=== PATIENT | male | born 2000 | race Caucasian/White ===

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

== ENCOUNTER 2019-02-19 13:21 | Emergency (ER) | payer OTHER ==
[2019-02-19 13:37] VITALS: RESP 18
[2019-02-19 14:42] LABS: Cocaine Screen,Urine Not Detected (NotDetected); Phencyclidine Screen,Urine Not Detected (NotDetected); Urn Cannabinoid Scrn Not Detected (NotDetected)
[2019-02-19 14:43] LABS: Amphetamine Screen,Urine Not Detected (NotDetected); Barbiturate Screen,Urine Not Detected (NotDetected); Benzodiazepines Screen,Urine Not Detected (NotDetected); Methadone Screen, Urine Not Detected (NotDetected); Opiate Screen,Urine Not Detected (NotDetected); Oxycodone Screen, Urine Not Detected (NotDetected); Tricyclic Antidepressant,Urine Not Detected (NotDetected)
--- NOTE | 2019-02-19 18:16 | ED ---
General Adult HPI - General Chief complaint: Psychiatric Symptoms Stated complaint: EPS eval Time Seen by Provider: 02/19/19 13:41 Source: patient, RN notes reviewed Mode of arrival: ambulatory Limitations: no limitations - History of Present Illness Initial comments: Patient is a pleasant 18-year-old male presenting to the emergency department family with depression and suicidal thoughts. Patient has been depressed for over a year. Symptoms worsened recently. Patient does have occasional thoughts of self-harm. Patient has ideas however states he does not have a plan. No hallucinations. No physical complaints. No homicidal thoughts. No alcohol or street drug use. - Related Data Home Medications Medication Instructions Recorded Confirmed Albuterol Inhaler [Ventolin Hfa 2 puff INHALATION RT-QID PRN 12/09/18 02/19/19 Inhaler] Ergocalciferol [Vitamin D2 50,000 unit PO TENA 12/09/18 02/19/19 (DRISDOL)] Loratadine [Claritin] 10 mg PO DAILY 12/09/18 02/19/19 Methylphenidate HCl [Ritalin] 20 mg PO DAILY 12/09/18 02/19/19 Montelukast [Singulair] 10 mg PO HS 12/09/18 02/19/19 Sertraline [Zoloft] 150 mg PO DAILY 12/09/18 02/19/19 cloNIDine HCL [Catapres] 0.1 mg PO HS 12/09/18 02/19/19 Allergies Allergy/AdvReac Type Severity Reaction Status Date / Time No Known Allergies Allergy Verified 02/19/19 14:16 Review of Systems ROS Statement: Those systems with pertinent positive or pertinent negative responses have been documented in the HPI. ROS Other: All systems not noted in ROS Statement are negative. Constitutional: Denies: fever Eyes: Denies: eye pain ENT: Denies: ear pain Respiratory: Denies: cough Cardiovascular: Denies: chest pain Endocrine: Denies: fatigue Gastrointestinal: Denies: abdominal pain Genitourinary: Denies: dysuria Musculoskeletal: Denies: back pain Skin: Denies: rash Neurological: Denies: headache, weakness Psychiatric: Reports: depression, suicidal thoughts Past Medical History Past Medical History: Asthma History of Any Multi-Drug Resistant Organisms: None Reported Past Surgical History: No Surgical Hx Reported Past Psychological History: ADD/ADHD, Anxiety, Depression Smoking Status: Never smoker Past Alcohol Use History: None Reported Past Drug Use History: None Reported General Exam Limitations: no limitations General appearance: alert, in no apparent distress Head exam: Present: atraumatic Eye exam: Present: normal appearance Neck exam: Present: normal inspection Respiratory exam: Present: normal lung sounds bilaterally Cardiovascular Exam: Present: regular rate GI/Abdominal exam: Present: soft. Absent: tenderness Extremities exam: Present: normal inspection. Absent: pedal edema, calf tenderness Neurological exam: Present: alert Psychiatric exam: Present: normal affect, normal mood Skin exam: Present: normal color Course Vital Signs 02/19/19 13:31 Temperature 98.5 F Pulse Rate 104 H Respiratory 18 Rate Blood Pressure 129/74 O2 Sat by Pulse 96 Oximetry Medical Decision Making - Medical Decision Making Patient was seen by mental health services with recommendation for discharge. Patient denies suicidal ideation and does contract for safety. Patient states he does have follow-up. - Lab Data Lab Results 02/19/19 Range/Units 13:51 Urine Opiates Screen Not Detected (NotDetected) Ur Oxycodone Screen Not Detected (NotDetected) Urine Methadone Screen Not Detected (NotDetected) Ur Propoxyphene Screen Not Detected (NotDetected) Ur Barbiturates Screen Not Detected (NotDetected) U Tricyclic Antidepress Not Detected (NotDetected) Ur Phencyclidine Scrn Not Detected (NotDetected) Ur Amphetamines Screen Not Detected (NotDetected) U Methamphetamines Scrn Not Detected (NotDetected) U Benzodiazepines Scrn Not Detected (NotDetected) Urine Cocaine Screen Not Detected (NotDetected) U Marijuana (THC) Screen Not Detected (NotDetected) Disposition Clinical Impression: Depression Disposition: HOME SELF-CARE Condition: Stable Instructions (If sedation given, give patient instructions): Depression (ED) Additional Instructions: Please follow-up with primary care physician and counselor in the next couple days for recheck. Return for thoughts of self-harm, worsening symptoms or other concerns. Is patient prescribed a controlled substance at d/c from ED?: No Referrals: Corry Gaspar MD [Primary Care Provider] - 1-2 days Time of Disposition: 18:16
[2019-02-19 19:04] VITALS: BP 123/74; PULSE 97; TEMP 97.8
== END 2019-02-19 19:03 | disposition home or self-care (01) ==
LOC: EC 13:21
DX: F32.9 Major depressive disorder, single episode, unspecified (principal); J45.909 Unspecified asthma, uncomplicated; F90.9 Attention-deficit hyperactivity disorder, unspecified type; F41.9 Anxiety disorder, unspecified; Z79.899 Other long term (current) drug therapy
CPT/HCPCS: 80306; 82075; 99284

== ENCOUNTER 2019-03-09 18:27 | Emergency (ER) | payer OTHER ==
[2019-03-09] MEDS ORDERED: SODIUM CHLORIDE 0.9% 1,000 ML IV STA (18:39)
--- NOTE | 2019-03-09 18:45 | ED ---
Psych HPI - General Chief Complaint: Psychiatric Symptoms Stated Complaint: Chemical ingestion Time Seen by Provider: 03/09/19 18:33 Source: patient, EMS, RN notes reviewed Mode of arrival: EMS - History of Present Illness Initial Comments: This is a 18-year-old male with a history of depression and autism who is feeling suicidal apparently he just lost his job he is at risk of being evicted from his grandmother's house. He reportedly drank a bottle of Gatorade that was next with anti-freeze. He doesn't believe there was much in there but per report her may have been as much as 250 mL. He denies any nausea vomiting fevers chills sweats or other symptoms at this time. MD Complaint: suicidal ideation, other - Related Data Home Medications Medication Instructions Recorded Confirmed Ergocalciferol [Vitamin D2 50,000 unit PO TENA 12/09/18 03/09/19 (DRISDOL)] Loratadine [Claritin] 10 mg PO DAILY 12/09/18 03/09/19 Methylphenidate HCl [Ritalin] 20 mg PO DAILY 12/09/18 03/09/19 Montelukast [Singulair] 10 mg PO HS 12/09/18 03/09/19 Sertraline [Zoloft] 200 mg PO DAILY 12/09/18 03/09/19 cloNIDine HCL [Catapres] 0.1 mg PO HS 12/09/18 03/09/19 ARIPiprazole [Abilify] 2 mg PO DAILY 03/09/19 03/09/19 Albuterol Inhaler [Ventolin Hfa 1 - 2 puff INHALATION RT-Q6H PRN 03/09/19 03/09/19 Inhaler] Multivitamins, Thera [Multivitamin 1 tab PO DAILY 03/09/19 03/09/19 (formulary)] Triamcinolone Acetonide [Nasacort] 1 spray EA NOSTRIL 03/09/19 03/09/19 Allergies Allergy/AdvReac Type Severity Reaction Status Date / Time No Known Allergies Allergy Verified 03/09/19 19:00 Review of Systems ROS Statement: Those systems with pertinent positive or pertinent negative responses have been documented in the HPI. ROS Other: All systems not noted in ROS Statement are negative. Past Medical History Past Medical History: Asthma History of Any Multi-Drug Resistant Organisms: None Reported Past Surgical History: No Surgical Hx Reported Past Psychological History: ADD/ADHD, Anxiety, Depression Smoking Status: Never smoker Past Alcohol Use History: None Reported Past Drug Use History: None Reported General Exam - General Exam Comments Initial Comments: This is a well-developed well-nourished awake alert oriented 3 male Limitations: no limitations General appearance: alert, in no apparent distress Head exam: Present: atraumatic, normocephalic, normal inspection Eye exam: Present: normal appearance, PERRL, EOMI. Absent: scleral icterus, conjunctival injection, periorbital swelling ENT exam: Present: normal exam, mucous membranes moist Neck exam: Present: normal inspection. Absent: tenderness, meningismus, lymphadenopathy Respiratory exam: Present: normal lung sounds bilaterally. Absent: respiratory distress, wheezes, rales, rhonchi, stridor Cardiovascular Exam: Present: regular rate, normal rhythm, normal heart sounds. Absent: systolic murmur, diastolic murmur, rubs, gallop, clicks GI/Abdominal exam: Present: soft, normal bowel sounds. Absent: distended, tenderness, guarding, rebound, rigid Extremities exam: Present: normal inspection, full ROM, normal capillary refill. Absent: tenderness, pedal edema, joint swelling, calf tenderness Back exam: Present: normal inspection Neurological exam: Present: alert, oriented X3, CN II-XII intact Psychiatric exam: Present: depressed, flat affect, suicidal ideation Skin exam: Present: warm, dry, intact, normal color. Absent: rash Course Vital Signs 03/09/19 18:37 Temperature 98.1 F Pulse Rate 90 Respiratory 18 Rate Blood Pressure 133/93 O2 Sat by Pulse 98 Oximetry - Reevaluation(s) Reevaluation #1: 03/09/19 18:44 I did fluoresce the patient's oral cavity face and certain was wet very minimal evidence of any fluoresce. 03/09/19 18:45 Medical Decision Making - Medical Decision Making The patient was evaluated by psychiatric service after he was cleared medically. He will be discharged with outpatient follow-up. Currently is not a risk to himself or anyone else - Lab Data Result diagrams: 03/09/19 18:55 03/09/19 18:55 Lab Results 03/09/19 03/09/19 03/09/19 Range/Units 18:55 18:55 18:55 WBC 10.2 (4.0-11.0) k/uL RBC 5.59 (4.30-5.90) m/uL Hgb 14.7 (13.0-17.5) gm/dL Hct 43.9 (39.0-53.0) % MCV 78.6 L (80.0-100.0) fL MCH 26.2 (25.0-35.0) pg MCHC 33.4 (31.0-37.0) g/dL RDW 16.4 H (11.5-15.5) % Plt Count 363 (150-450) k/uL Neutrophils % 70 % Lymphocytes % 19 % Monocytes % 8 % Eosinophils % 2 % Basophils % 0 % Neutrophils # 7.1 (1.3-7.7) k/uL Lymphocytes # 2.0 (1.0-4.8) k/uL Monocytes # 0.8 (0-1.0) k/uL Eosinophils # 0.2 (0-0.7) k/uL Basophils # 0.0 (0-0.2) k/uL Anisocytosis Slight VBG pH 7.39 (7.31-7.41) VBG pCO2 41 (37-51) mmHg VBG HCO3 24 (24-28) mmol/L Sodium 141 (137-145) mmol/L Potassium 4.4 (3.5-5.1) mmol/L Chloride 108 H (98-107) mmol/L Carbon Dioxide 23 (22-30) mmol/L Anion Gap 10 mmol/L BUN 19 (9-20) mg/dL Creatinine 0.68 (0.66-1.25) mg/dL Est GFR (CKD-EPI)AfAm >90 (>60 ml/min/1.73 sqM) Est GFR (CKD-EPI)NonAf >90 (>60 ml/min/1.73 sqM) Glucose 109 H (74-99) mg/dL Plasma Lactic Acid Vega (0.7-2.0) mmol/L Calcium 10.0 (8.4-10.2) mg/dL Total Bilirubin 0.5 (0.2-1.3) mg/dL AST 33 (17-59) U/L ALT 54 (21-72) U/L Alkaline Phosphatase 50 (38-126) U/L Creatine Kinase 154 (55-170) U/L Total Protein 7.6 (6.3-8.2) g/dL Albumin 4.6 (3.5-5.0) g/dL Lipase 37 (23-300) U/L Urine Color Urine Appearance (Clear) Urine pH (5.0-8.0) Ur Specific Logan (1.001-1.035) Urine Protein (Negative) Urine Glucose (UA) (Negative) Urine Ketones (Negative) Urine Blood (Negative) Urine Nitrite (Negative) Urine Bilirubin (Negative) Urine Urobilinogen (<2.0) mg/dL Ur Leukocyte Esterase (Negative) Salicylates <1.0 mg/dL Urine Opiates Screen (NotDetected) Ur Oxycodone Screen (NotDetected) Urine Methadone Screen (NotDetected) Ur Propoxyphene Screen (NotDetected) Acetaminophen <10.0 ug/mL Ur Barbiturates Screen (NotDetected) U Tricyclic Antidepress (NotDetected) Ur Phencyclidine Scrn (NotDetected) Ur Amphetamines Screen (NotDetected) U Methamphetamines Scrn (NotDetected) U Benzodiazepines Scrn (NotDetected) Urine Cocaine Screen (NotDetected) U Marijuana (THC) Screen (NotDetected) Serum Alcohol <10 mg/dL 03/09/19 03/09/19 Range/Units 18:55 19:18 WBC (4.0-11.0) k/uL RBC (4.30-5.90) m/uL Hgb (13.0-17.5) gm/dL Hct (39.0-53.0) % MCV (80.0-100.0) fL MCH (25.0-35.0) pg MCHC (31.0-37.0) g/dL RDW (11.5-15.5) % Plt Count (150-450) k/uL Neutrophils % % Lymphocytes % % Monocytes % % Eosinophils % % Basophils % % Neutrophils # (1.3-7.7) k/uL Lymphocytes # (1.0-4.8) k/uL Monocytes # (0-1.0) k/uL Eosinophils # (0-0.7) k/uL Basophils # (0-0.2) k/uL Anisocytosis VBG pH (7.31-7.41) VBG pCO2 (37-51) mmHg VBG HCO3 (24-28) mmol/L Sodium (137-145) mmol/L Potassium (3.5-5.1) mmol/L Chloride (98-107) mmol/L Carbon Dioxide (22-30) mmol/L Anion Gap mmol/L BUN (9-20) mg/dL Creatinine (0.66-1.25) mg/dL Est GFR (CKD-EPI)AfAm (>60 ml/min/1.73 sqM) Est GFR (CKD-EPI)NonAf (>60 ml/min/1.73 sqM) Glucose (74-99) mg/dL Plasma Lactic Acid Vega 1.8 (0.7-2.0) mmol/L Calcium (8.4-10.2) mg/dL Total Bilirubin (0.2-1.3) mg/dL AST (17-59) U/L ALT (21-72) U/L Alkaline Phosphatase (38-126) U/L Creatine Kinase (55-170) U/L Total Protein (6.3-8.2) g/dL Albumin (3.5-5.0) g/dL Lipase (23-300) U/L Urine Color Yellow Urine Appearance Clear (Clear) Urine pH 6.0 (5.0-8.0) Ur Specific Logan 1.029 (1.001-1.035) Urine Protein Negative (Negative) Urine Glucose (UA) Negative (Negative) Urine Ketones Negative (Negative) Urine Blood Negative (Negative) Urine Nitrite Negative (Negative) Urine Bilirubin Negative (Negative) Urine Urobilinogen <2.0 (<2.0) mg/dL Ur Leukocyte Esterase Negative (Negative) Salicylates mg/dL Urine Opiates Screen Not Detected (NotDetected) Ur Oxycodone Screen Not Detected (NotDetected) Urine Methadone Screen Not Detected (NotDetected) Ur Propoxyphene Screen Not Detected (NotDetected) Acetaminophen ug/mL Ur Barbiturates Screen Not Detected (NotDetected) U Tricyclic Antidepress Not Detected (NotDetected) Ur Phencyclidine Scrn Not Detected (NotDetected) Ur Amphetamines Screen Not Detected (NotDetected) U Methamphetamines Scrn Not Detected (NotDetected) U Benzodiazepines Scrn Detected H (NotDetected) Urine Cocaine Screen Not Detected (NotDetected) U Marijuana (THC) Screen Not Detected (NotDetected) Serum Alcohol mg/dL - EKG Data -: EKG Interpreted by Me EKG shows normal: sinus rhythm (Normal sinus rhythm 88. Interval 148 QRS duration 82 QT since QTC 350/423 this is a normal-appearing EKG.) Disposition Clinical Impression: Adjustment reaction Disposition: HOME SELF-CARE Condition: Good Instructions (If sedation given, give patient instructions): Mood Disorders (ED) Is patient prescribed a controlled substance at d/c from ED?: No Referrals: Corry Gaspar MD [Primary Care Provider] - 1-2 days
[2019-03-09 19:12] LABS: VBG PH 7.39 (7.31-7.41)
[2019-03-09 19:24] LABS: ALT 54 U/L (21-72); AST 33 U/L (17-59); Acetaminophen <10.0 ug/mL; African American GFR (CKD) >90 (>60 ml/min/1.73 sqM); Albumin 4.6 g/dL (3.5-5.0); Alcohol <10 mg/dL; Alkaline Phosphatase 50 U/L (38-126); Anion Gap 10 mmol/L; Blood Urea Nitrogen 19 mg/dL (9-20); Carbon Dioxide 23 mmol/L (22-30); Chloride 108 mmol/L (98-107); Creatine Kinase 154 U/L (55-170); Glucose 109 mg/dL (74-99); Potassium 4.4 mmol/L (3.5-5.1); Salicylate <1.0 mg/dL; Sodium 141 mmol/L (137-145); Total Bilirubin 0.5 mg/dL (0.2-1.3); Total Protein 7.6 g/dL (6.3-8.2)
[2019-03-09 19:32] LABS: Anisocytosis Slight; Basophils % (A) 0 %; Eosinophils # (A) 0.2 k/uL (0-0.7); Eosinophils % (A) 2 %; HCT 43.9 % (39.0-53.0); HGB 14.7 gm/dL (13.0-17.5); Lymphocytes % (A) 19 %; MCH 26.2 pg (25.0-35.0); MCHC 33.4 g/dL (31.0-37.0); MCV 78.6 fL (80.0-100.0); Mean Platelet Volume 7.1; Monocytes # (A) 0.8 k/uL (0-1.0); Monocytes % (A) 8 %; Neutrophils # (A) 7.1 k/uL (1.3-7.7); Neutrophils % (A) 70 %; Platelet Count 363 k/uL (150-450); RBC 5.59 m/uL (4.30-5.90); RDW 16.4 % (11.5-15.5); WBC 10.2 k/uL (4.0-11.0)
[2019-03-09 19:33] LABS: Appearance,Urine Clear (Clear); Bilirubin,Urine Negative (Negative); Blood,Urine Negative (Negative); Color,Urine Yellow; Glucose,Urine (UA) Negative (Negative); Ketones,Urine Negative (Negative); Leukocyte Esterase,Urine Negative (Negative); Nitrite,Urine Negative (Negative); Protein,Urine Negative (Negative); Specific Gravity,Urine 1.029 (1.001-1.035); Urobilinogen,Urine <2.0 mg/dL (<2.0)
[2019-03-09 19:52] LABS: Amphetamine Screen,Urine Not Detected (NotDetected); Barbiturate Screen,Urine Not Detected (NotDetected); Benzodiazepines Screen,Urine Detected (NotDetected); Cocaine Screen,Urine Not Detected (NotDetected); Methadone Screen, Urine Not Detected (NotDetected); Opiate Screen,Urine Not Detected (NotDetected); Oxycodone Screen, Urine Not Detected (NotDetected); Phencyclidine Screen,Urine Not Detected (NotDetected); Tricyclic Antidepressant,Urine Not Detected (NotDetected); Urn Cannabinoid Scrn Not Detected (NotDetected)
[2019-03-09 23:09] VITALS: BP 129/75; PULSE 87; RESP 16; TEMP 98
== END 2019-03-09 23:09 | disposition home or self-care (01) ==
LOC: EC 18:27
DX: F43.21 Adjustment disorder with depressed mood (principal); R45.851 Suicidal ideations; J45.909 Unspecified asthma, uncomplicated; F41.9 Anxiety disorder, unspecified; F90.9 Attention-deficit hyperactivity disorder, unspecified type; Z79.899 Other long term (current) drug therapy
CPT/HCPCS: 82075; 36415; 93005; 80053; 82550; 82803; 83605; 83690; 85025; 81003; 80306; 83520; 99285; 96360; G0480 ×2; 80320; 80329

== ENCOUNTER 2020-10-10 03:48 | Emergency (ER) | payer OTHER ==
[2020-10-10 03:54] VITALS: RESP 18; TEMP 97.9
--- NOTE | 2020-10-10 04:17 | ED ---
Chest Pain HPI - General Chief Complaint: Chest Pain Stated Complaint: Chest Pain Time Seen by Provider: 10/10/20 03:55 Source: patient, family Mode of arrival: wheelchair Limitations: no limitations - History of Present Illness MD Complaint: chest pain Onset/Timin -: hour(s) Onset: during rest Pain Location: left chest Pain Radiation: none Severity: moderate Quality: sharp Consistency: constant Improves With: nothing Worsens With: nothing Treatments Prior to Arrival: none - Related Data Home Medications Medication Instructions Recorded Confirmed Ergocalciferol [Vitamin D2 50,000 unit PO TENA 12/09/18 03/09/19 (DRISDOL)] Loratadine [Claritin] 10 mg PO DAILY 12/09/18 03/09/19 Methylphenidate HCl [Ritalin] 20 mg PO DAILY 12/09/18 03/09/19 Montelukast [Singulair] 10 mg PO HS 12/09/18 03/09/19 Sertraline [Zoloft] 200 mg PO DAILY 12/09/18 03/09/19 cloNIDine HCL [Catapres] 0.1 mg PO HS 12/09/18 03/09/19 ARIPiprazole [Abilify] 2 mg PO DAILY 03/09/19 03/09/19 Albuterol Inhaler (Mhu) [Ventolin 1 - 2 puff INHALATION RT-Q6H PRN 03/09/19 03/09/19 Hfa Inhaler] Multivitamins, Thera [Multivitamin 1 tab PO DAILY 03/09/19 03/09/19 (formulary)] Triamcinolone Acetonide [Nasacort] 1 spray EA NOSTRIL 03/09/19 03/09/19 Allergies Allergy/AdvReac Type Severity Reaction Status Date / Time No Known Allergies Allergy Verified 10/10/20 03:50 Review of Systems ROS Statement: Those systems with pertinent positive or pertinent negative responses have been documented in the HPI. ROS Other: All systems not noted in ROS Statement are negative. Constitutional: Denies: fever, chills Respiratory: Denies: cough, dyspnea Cardiovascular: Reports: chest pain. Denies: palpitations, edema, syncope Gastrointestinal: Denies: abdominal pain, nausea, vomiting Genitourinary: Denies: dysuria Musculoskeletal: Denies: back pain Skin: Denies: rash Neurological: Denies: headache, weakness EKG Findings - EKG Results: EKG: interpreted by ERMD, sinus rhythm, normal axis, normal QRS EKG shows: tachycardia (Rate 110 bpm) - Blocks, [place], Hypertrophy, ST Abn: Repolarization changes or abnormalities: nonspecific abnormality, ST segment, and/or T wave Past Medical History Past Medical History: Asthma, Seizure Disorder Additional Past Medical History / Comment(s): Autism History of Any Multi-Drug Resistant Organisms: None Reported Past Surgical History: No Surgical Hx Reported Past Psychological History: ADD/ADHD, Anxiety, Depression Smoking Status: Former smoker Past Alcohol Use History: None Reported Past Drug Use History: None Reported General Exam Limitations: no limitations General appearance: alert, in no apparent distress Head exam: Present: atraumatic, normocephalic Eye exam: Present: normal appearance. Absent: scleral icterus, conjunctival injection Neck exam: Present: normal inspection Respiratory exam: Present: normal lung sounds bilaterally, chest wall tenderness. Absent: respiratory distress, wheezes, rales, rhonchi, stridor, accessory muscle use Cardiovascular Exam: Present: normal rhythm, tachycardia, normal heart sounds. Absent: systolic murmur, diastolic murmur, rubs, gallop GI/Abdominal exam: Present: soft. Absent: distended, tenderness, guarding, rebound, rigid, pulsatile mass Extremities exam: Present: normal inspection, normal capillary refill. Absent: pedal edema, calf tenderness Back exam: Present: normal inspection. Absent: CVA tenderness (R), CVA tenderness (L), vertebral tenderness Neurological exam: Present: alert Skin exam: Present: warm, dry, intact, normal color. Absent: rash Course Vital Signs 10/10/20 10/10/20 03:51 06:28 Temperature 97.9 F Pulse Rate 106 H 97 Respiratory 18 18 Rate Blood Pressure 142/93 130/62 O2 Sat by Pulse 96 97 Oximetry Disposition Clinical Impression: Chest pain Disposition: HOME SELF-CARE Condition: Good Instructions (If sedation given, give patient instructions): Chest Pain (ED) Is patient prescribed a controlled substance at d/c from ED?: No Referrals: Corry Gaspar MD [Primary Care Provider] - 1-2 days
[2020-10-10 05:01] LABS: Basophils # (A) 0.1 k/uL (0-0.2); Basophils % (A) 1 %; Eosinophils # (A) 0.5 k/uL (0-0.7); Eosinophils % (A) 4 %; HCT 42.7 % (39.0-53.0); HGB 13.9 gm/dL (13.0-17.5); Lymphocytes % (A) 25 %; MCH 24.3 pg (25.0-35.0); MCHC 32.5 g/dL (31.0-37.0); MCV 74.9 fL (80.0-100.0); Mean Platelet Volume 6.9; Microcytosis Slight; Monocytes # (A) 0.9 k/uL (0-1.0); Monocytes % (A) 7 %; Neutrophils # (A) 7.6 k/uL (1.3-7.7); Neutrophils % (A) 63 %; Platelet Count 365 k/uL (150-450); RDW 14.7 % (11.5-15.5); WBC 12.1 k/uL (3.8-10.6)
[2020-10-10 05:12] LABS: ALT 56 U/L (4-49); AST 37 U/L (17-59); African American GFR (CKD) >90 (>60 ml/min/1.73 sqM); Albumin 4.6 g/dL (3.5-5.0); Alkaline Phosphatase 78 U/L (38-126); Anion Gap 12 mmol/L; Blood Urea Nitrogen 17 mg/dL (9-20); Calcium 10.3 mg/dL (8.4-10.2); Carbon Dioxide 22 mmol/L (22-30); Chloride 107 mmol/L (98-107); Glucose 108 mg/dL (74-99); Non-African American GFR(CKD) >90 (>60 ml/min/1.73 sqM); Potassium 4.1 mmol/L (3.5-5.1); Sodium 141 mmol/L (137-145); Total Bilirubin 0.5 mg/dL (0.2-1.3); Total Protein 7.7 g/dL (6.3-8.2)
--- NOTE | 2020-10-10 05:15 | XR ---
EXAM: XR Chest, 2 Views CLINICAL HISTORY: ITS.REASON XR Reason: Chest Pain TECHNIQUE: Frontal and lateral views of the chest. COMPARISON: 12/09/2018. FINDINGS: Lungs: Unremarkable. No consolidation. Pleural space: Unremarkable. No pneumothorax. Heart: Unremarkable. No cardiomegaly. Mediastinum: Unremarkable. Bones/joints: Unremarkable. No displaced rib fractures. IMPRESSION: No acute pulmonary process.
[2020-10-10 06:30] VITALS: BP 130/62; PULSE 97
== END 2020-10-10 07:04 | disposition home or self-care (01) ==
LOC: EC 03:48
DX: R07.89 Other chest pain (principal); J45.909 Unspecified asthma, uncomplicated; F41.9 Anxiety disorder, unspecified; F32.9 Major depressive disorder, single episode, unspecified; Z87.891 Personal history of nicotine dependence
CPT/HCPCS: 36415; 71046; 80053; 83735; 84484; 85025; 85379; 93005; 99285

== ENCOUNTER 2020-10-23 21:26 | Emergency (ER) | payer OTHER ==
[2020-10-23 21:33] VITALS: TEMP 97.9
[2020-10-23] MEDS ORDERED: ACETAMINOPHEN TAB 325 MG TAB PO STA (22:04)
--- NOTE | 2020-10-23 22:10 | ED ---
Upper Extremity HPI - General Chief Complaint: Extremity Injury, Upper Stated Complaint: R Hand Pain Time Seen by Provider: 10/23/20 21:50 Source: patient Mode of arrival: ambulatory Limitations: no limitations - History of Present Illness Initial Comments: 's patient is a 20-year-old man with history of seizure disorder who presents with complaint that he believes he injured his right hand due to a seizure last night. Patient does have multiple seizures on some days. He is compliant with his medication but still has chronic breakthrough seizures. The patient was night had a seizure and his hand was banging against a piece of furniture. He indicates the area over the fourth and fifth MCP joints. He does continue to have sensation and movement throughout the right hand. When discussed with the patient and family members, they're not concerned about the seizures, and state that this is something that is usual for him. They are only concerned regarding the hand injury. Complaint: Injury to:: right Onset/Timin -: hour(s) Other Extremity Injury: Hand: Right Other Injuries: none Handedness: right Place: home Improves With: none Worsens With: movement of extremity Context: direct blow Associated Symptoms: denies other symptoms - Related Data Home Medications Medication Instructions Recorded Confirmed Ergocalciferol [Vitamin D2 50,000 unit PO TENA 12/09/18 03/09/19 (DRISDOL)] Loratadine [Claritin] 10 mg PO DAILY 12/09/18 03/09/19 Methylphenidate HCl [Ritalin] 20 mg PO DAILY 12/09/18 03/09/19 Montelukast [Singulair] 10 mg PO HS 12/09/18 03/09/19 Sertraline [Zoloft] 200 mg PO DAILY 12/09/18 03/09/19 cloNIDine HCL [Catapres] 0.1 mg PO HS 12/09/18 03/09/19 ARIPiprazole [Abilify] 2 mg PO DAILY 03/09/19 03/09/19 Albuterol Inhaler (Mhu) [Ventolin 1 - 2 puff INHALATION RT-Q6H PRN 03/09/19 03/09/19 Hfa Inhaler] Multivitamins, Thera [Multivitamin 1 tab PO DAILY 03/09/19 03/09/19 (formulary)] Triamcinolone Acetonide [Nasacort] 1 spray EA NOSTRIL 03/09/19 03/09/19 Allergies Allergy/AdvReac Type Severity Reaction Status Date / Time No Known Allergies Allergy Verified 10/23/20 21:32 Review of Systems ROS Statement: Those systems with pertinent positive or pertinent negative responses have been documented in the HPI. ROS Other: All systems not noted in ROS Statement are negative. Constitutional: Denies: fever, chills, weakness Eyes: Denies: vision change Respiratory: Denies: cough, dyspnea Cardiovascular: Denies: chest pain Gastrointestinal: Denies: abdominal pain, vomiting Musculoskeletal: Reports: as per HPI, arthralgia. Denies: back pain Skin: Denies: rash Neurological: Denies: headache, weakness, numbness, paresthesias, confusion Past Medical History Past Medical History: Asthma, Seizure Disorder Additional Past Medical History / Comment(s): Autism History of Any Multi-Drug Resistant Organisms: None Reported Past Surgical History: No Surgical Hx Reported Past Psychological History: ADD/ADHD, Anxiety, Depression Smoking Status: Never smoker Past Alcohol Use History: None Reported Past Drug Use History: None Reported General Exam Limitations: no limitations General appearance: alert, in no apparent distress Head exam: Present: atraumatic, normocephalic Eye exam: Present: normal appearance, PERRL, EOMI. Absent: scleral icterus, conjunctival injection, nystagmus Right Forearm Wrist exam: Present: normal inspection, full ROM. Absent: tenderness, swelling Hand Wrist exam: Present: full ROM, tenderness (Overlying the right fourth and fifth MCP joints), swelling (Overlying the right fourth and fifth MCP joints), ecchymosis (Overlying the right fourth and fifth MCP joints). Absent: abrasion, laceration, deformity, crepitus, dislocation, erythema, amputation Neuro motor exam: Present: wrist extension intact, thumb opposition intact, thumb IP flexion intact, thumb adduction intact, fingers 2-5 abduction intact Neurosensory exam: Present: 2-point discrimination, radial nerve intact, ulnar nerve intact, median nerve intact Vascular: Present: normal capillary refill. Absent: vascular compromise Neurological exam: Present: alert. Absent: motor sensory deficit Skin exam: Present: warm, dry, intact, normal color. Absent: rash Course Vital Signs 10/23/20 21:27 Temperature 97.9 F Pulse Rate 100 Respiratory 18 Rate Blood Pressure 149/98 O2 Sat by Pulse 97 Oximetry Disposition Clinical Impression: Contusion, hand Disposition: HOME SELF-CARE Condition: Good Instructions (If sedation given, give patient instructions): Hand Sprain (ED) Is patient prescribed a controlled substance at d/c from ED?: No Referrals: Corry Gaspar MD [Primary Care Provider] - 1-2 days
--- NOTE | 2020-10-23 22:44 | XR ---
EXAMINATION TYPE: XR hand complete RT DATE OF EXAM: 10/23/2020 COMPARISON: NONE HISTORY: Pain TECHNIQUE: 3 views FINDINGS: Metacarpals are intact. There is soft tissue swelling around the hand. Joint spaces appear normal. There are no erosions. IMPRESSION: No acute bony abnormality. No fracture.
[2020-10-23 23:10] VITALS: BP 135/80; PULSE 86; RESP 16
== END 2020-10-23 23:05 | disposition home or self-care (01) ==
LOC: EC 21:26
DX: S60.221A Contusion of right hand, initial encounter (principal); F32.9 Major depressive disorder, single episode, unspecified; F41.9 Anxiety disorder, unspecified; J45.909 Unspecified asthma, uncomplicated; W22.09XA Striking against other stationary object, initial encounter
CPT/HCPCS: 99283

== ENCOUNTER 2022-03-23 23:34 | Emergency (ER) | payer OTHER ==
[2022-03-24] VITALS: BP 139/87; PULSE 87; RESP 17; TEMP 98.3
--- NOTE | 2022-03-24 02:03 | ED ---
General Adult HPI - General Chief complaint: Recheck/Abnormal Lab/Rx Stated complaint: HIgh Blood Pressure Time Seen by Provider: 03/24/22 01:03 Source: patient, RN notes reviewed Mode of arrival: wheelchair - History of Present Illness Initial comments: This is a pleasant 21-year-old male with a history of autism and seizure disorder. The patient drank 216 ounce energy drinks each containing 300 mg of caffeine today. He'll for the patient. After that he developed a strange feeling with elevated blood pressure. patient denying any current symptoms. No chest pain. States he did have a bit of a headache earlier which is actually resolved. No vision or hearing changes. No numbness or tingling. No arm or leg weakness. No gait disturbance. No nausea or vomiting. No confusion. No abdominal pain. No changes in bowel movements or urination.has had no seizure activity no fever or chills, no changes in vision or hearing, no sore throat or difficulty with speech, no neck pain, no chest pain or shortness of breath, no abdominal pain, no nausea or vomiting, no changes in urination or bowel movements, no numbness or tingling, no extremity pain, no skin rashes or lesions. Past medical, surgical, social, and family history reviewed. - Related Data Home Medications Medication Instructions Recorded Confirmed Ergocalciferol [Vitamin D2 50,000 unit PO TENA 12/09/18 03/09/19 (DRISDOL)] Loratadine [Claritin] 10 mg PO DAILY 12/09/18 03/09/19 Methylphenidate HCl [Ritalin] 20 mg PO DAILY 12/09/18 03/09/19 Montelukast [Singulair] 10 mg PO HS 12/09/18 03/09/19 Sertraline [Zoloft] 200 mg PO DAILY 12/09/18 03/09/19 cloNIDine HCL [Catapres] 0.1 mg PO HS 12/09/18 03/09/19 ARIPiprazole [Abilify] 2 mg PO DAILY 03/09/19 03/09/19 Albuterol Inhaler [Ventolin Hfa 1 - 2 puff INHALATION RT-Q6H PRN 03/09/19 03/09/19 Inhaler] Multivitamins, Thera [Multivitamin 1 tab PO DAILY 03/09/19 03/09/19 (formulary)] Triamcinolone Acetonide [Nasacort] 1 spray EA NOSTRIL HS 03/09/19 03/09/19 Allergies Allergy/AdvReac Type Severity Reaction Status Date / Time No Known Allergies Allergy Verified 03/24/22 00:00 Review of Systems ROS Statement: Those systems with pertinent positive or pertinent negative responses have been documented in the HPI. ROS Other: All systems not noted in ROS Statement are negative. Past Medical History Past Medical History: Asthma, Seizure Disorder Additional Past Medical History / Comment(s): Autism, VNS Device implanted History of Any Multi-Drug Resistant Organisms: None Reported Past Surgical History: No Surgical Hx Reported Past Psychological History: ADD/ADHD, Anxiety, Depression Smoking Status: Never smoker Past Alcohol Use History: None Reported Past Drug Use History: None Reported General Exam - General Exam Comments Initial Comments: Vital signs stable, patient afebrile. Patient's current blood pressure is 134/87. Alert and oriented 4. Cranial nerves II through XII intact. No evidence of neurologic deficit. Does not appear to be ill or toxic. General appearance: obese Head exam: Present: atraumatic, normocephalic, normal inspection Eye exam: Present: normal appearance, PERRL, EOMI. Absent: scleral icterus, conjunctival injection, periorbital swelling ENT exam: Present: normal exam, mucous membranes moist Neck exam: Present: normal inspection. Absent: tenderness, meningismus, lymphadenopathy Respiratory exam: Present: normal lung sounds bilaterally. Absent: respiratory distress, wheezes, rales, rhonchi, stridor Cardiovascular Exam: Present: regular rate, normal rhythm, normal heart sounds. Absent: systolic murmur, diastolic murmur, rubs, gallop, clicks GI/Abdominal exam: Present: soft, normal bowel sounds. Absent: distended, tenderness, guarding, rebound, rigid Extremities exam: Present: normal inspection, full ROM, normal capillary refill. Absent: tenderness, pedal edema, joint swelling, calf tenderness Back exam: Present: normal inspection Neurological exam: Present: alert, oriented X3, CN II-XII intact Psychiatric exam: Present: normal affect, normal mood Skin exam: Present: warm, dry, intact, normal color. Absent: rash Course Vital Signs 03/23/22 23:56 Temperature 98.3 F Pulse Rate 87 Respiratory 17 Rate Blood Pressure 139/87 O2 Sat by Pulse 99 Oximetry - Reevaluation(s) Reevaluation #1: 03/24/22 01:59 Medical record is reviewed Symptoms are improved here in the emergency department Patient is informed of results and questions answered Patient in no distress EKG Findings - EKG Comments: EKG Findings:: EKG done at 1:45 AM and read by the ED attending physician reveals a rate of 109, sinus tachycardia. No evidence of significant ST or T- wave changes. Normal axis. Normal intervals. When compared to the previous study from October 2020 there is no significant change. Patient does have some baseline artifact on this EKG. Patient shows tachycardia which is expected after drinking energy drinks. Medical Decision Making - Medical Decision Making Patient presented after having a blood pressure check at home of 180/110. This was after 2, 16 ounce energy drinks.these contain 300 mg of caffeine each. This is not normal for the patient to intake and energy drinks. Patient symptoms are essentially resolved at this time. Patient now normotensive. Vital signs stabilized. Patient was not tachycardic on physical examination. Heart rate was 84. Patient was told to return to the ER for any signs or symptoms worsen. Told to return immediately if any other problems arise. All questions answered. Treatment plan discussed. Patient in agreement Every effort has been made to ensure accuracy of this dictation. However, due to the limitations of electronic medical records and dictation devices, errors in charting still occur. Patient discharged with his mother. Told to refrain from taking energy drinks. I do not believe any other investigations are warranted. The case was discussed in detail with ED attending physician. Presentation, fi ndings, treatment plan discussed in detail. Patient can follow up with his regular physician. Mother told to call for follow-up. We'll have her monitor her blood pressure home once daily. Supervising physician Dr. Meyers Disposition Clinical Impression: Single episode of elevated blood pressure, Caffeine adverse reaction Disposition: HOME SELF-CARE Condition: Good Instructions (If sedation given, give patient instructions): Hypertension (ED), Caffeine Use (ED) Additional Instructions: Blood pressure has stabilized. Make a follow-up appointment with her regular physician. Avoid energy drinks. Follow-up with your regular physician as directed. Return to the ER immediately if any symptoms worsen, new symptoms arise, or any other problems develop. Is patient prescribed a controlled substance at d/c from ED?: No Referrals: Corry Gaspar MD [Primary Care Provider] - 1-2 days Time of Disposition: 02:02
== END 2022-03-24 03:25 | disposition home or self-care (01) ==
LOC: EC 23:34
DX: I10 Essential (primary) hypertension (principal); T43.615A Adverse effect of caffeine, initial encounter; J45.909 Unspecified asthma, uncomplicated; F41.9 Anxiety disorder, unspecified; F32.A Depression, unspecified; Z79.51 Long term (current) use of inhaled steroids; Z79.899 Other long term (current) drug therapy
CPT/HCPCS: 99283

== ENCOUNTER 2022-03-27 02:04 | Emergency (ER) | payer OTHER ==
[2022-03-27 02:10] VITALS: TEMP 96.3
[2022-03-27] MEDS ORDERED: hydroCHLOROthiazide 25 MG TAB PO STA (03:01)
--- NOTE | 2022-03-27 03:01 | ED ---
Recheck HPI - General Chief Complaint: Recheck/Abnormal Lab/Rx Stated Complaint: High BP Time Seen by Provider: 03/27/22 02:42 Source: patient, RN notes reviewed, old records reviewed Mode of arrival: ambulatory Limitations: no limitations - History of Present Illness Initial Comments: This is a 19-year-old male DF for evaluation patient presents today for elevation of elevated blood pressure anxiety and stress at home. Patient's blood pressures improved here in the ER, patient grandjeremiah who is primary caregiver wishes that he said some blood pressure medication. Patient otherwise has no complaints MD Complaint: other (Elevated blood pressure) -: unknown Returns Today for: other (0) Symptoms Since Prior Visit: no new symptoms Context: planned re-check Associated Symptoms: none Treatments Prior to Arrival: other (0) - Related Data Home Medications Medication Instructions Recorded Confirmed Ergocalciferol [Vitamin D2 50,000 unit PO TENA 12/09/18 03/09/19 (DRISDOL)] Loratadine [Claritin] 10 mg PO DAILY 12/09/18 03/09/19 Methylphenidate HCl [Ritalin] 20 mg PO DAILY 12/09/18 03/09/19 Montelukast [Singulair] 10 mg PO HS 12/09/18 03/09/19 Sertraline [Zoloft] 200 mg PO DAILY 12/09/18 03/09/19 cloNIDine HCL [Catapres] 0.1 mg PO HS 12/09/18 03/09/19 ARIPiprazole [Abilify] 2 mg PO DAILY 03/09/19 03/09/19 Albuterol Inhaler [Ventolin Hfa 1 - 2 puff INHALATION RT-Q6H PRN 03/09/19 03/09/19 Inhaler] Multivitamins, Thera [Multivitamin 1 tab PO DAILY 03/09/19 03/09/19 (formulary)] Triamcinolone Acetonide [Nasacort] 1 spray EA NOSTRIL HS 03/09/19 03/09/19 Previous Rx's Medication Instructions Recorded hydroCHLOROthiazide 25 mg PO DAILY #60 tab 03/27/22 Allergies Allergy/AdvReac Type Severity Reaction Status Date / Time No Known Allergies Allergy Verified 03/27/22 02:10 Review of Systems ROS Statement: Those systems with pertinent positive or pertinent negative responses have been documented in the HPI. ROS Other: All systems not noted in ROS Statement are negative. Past Medical History Past Medical History: Asthma, Seizure Disorder Additional Past Medical History / Comment(s): Autism, VNS Device implanted History of Any Multi-Drug Resistant Organisms: None Reported Past Surgical History: No Surgical Hx Reported Past Psychological History: ADD/ADHD, Anxiety, Depression Smoking Status: Never smoker Past Alcohol Use History: None Reported Past Drug Use History: None Reported General Exam Limitations: no limitations General appearance: anxious Head exam: Present: atraumatic, normocephalic, normal inspection Eye exam: Present: normal appearance, PERRL, EOMI. Absent: scleral icterus, conjunctival injection, periorbital swelling ENT exam: Present: normal exam, mucous membranes moist Neck exam: Present: normal inspection. Absent: tenderness, meningismus, lymphadenopathy Respiratory exam: Present: normal lung sounds bilaterally. Absent: respiratory distress, wheezes, rales, rhonchi, stridor Cardiovascular Exam: Present: regular rate, normal rhythm, normal heart sounds. Absent: systolic murmur, diastolic murmur, rubs, gallop, clicks GI/Abdominal exam: Present: soft, normal bowel sounds. Absent: distended, tenderness, guarding, rebound, rigid Extremities exam: Present: normal inspection, full ROM, normal capillary refill. Absent: tenderness, pedal edema, joint swelling, calf tenderness Back exam: Present: normal inspection Neurological exam: Present: alert, oriented X3, CN II-XII intact Psychiatric exam: Present: normal affect, normal mood Skin exam: Present: warm, dry, intact, normal color. Absent: rash Course Vital Signs 03/27/22 03/27/22 02:06 03:13 Temperature 96.3 F L Pulse Rate 96 74 Respiratory 20 15 Rate Blood Pressure 141/87 137/68 O2 Sat by Pulse 98 98 Oximetry - Reevaluation(s) Reevaluation #1: 03/27/22 Medical record is reviewed Patient symptoms resolved here in the ER Patient informed results and questions answered Medical Decision Making - Medical Decision Making 21 male to the emergency department for evaluation presents today for elevation of elevated blood pressure. Patient was started on blood pressure control can be discharged home Disposition Clinical Impression: Hypertension Disposition: HOME SELF-CARE Condition: Good Instructions (If sedation given, give patient instructions): Hypertension (ED) Prescriptions: hydroCHLOROthiazide 25 mg PO DAILY #60 tab Is patient prescribed a controlled substance at d/c from ED?: No Referrals: Corry Gaspar MD [Primary Care Provider] - 1-2 days Time of Disposition: 03:00
[2022-03-27 03:14] VITALS: BP 137/68; PULSE 74; RESP 15
== END 2022-03-27 03:13 | disposition home or self-care (01) ==
LOC: EC 02:04
DX: I10 Essential (primary) hypertension (principal); J45.909 Unspecified asthma, uncomplicated; G40.909 Epilepsy, unspecified, not intractable, without status epilepticus; F90.9 Attention-deficit hyperactivity disorder, unspecified type; F41.9 Anxiety disorder, unspecified; F32.A Depression, unspecified; Z79.51 Long term (current) use of inhaled steroids; Z79.811 Long term (current) use of aromatase inhibitors; Z79.899 Other long term (current) drug therapy
CPT/HCPCS: 93005; 99283

== ENCOUNTER 2022-07-09 04:33 | Emergency (ER) | payer OTHER ==
[2022-07-09 04:40] VITALS: TEMP 98.7
--- NOTE | 2022-07-09 05:28 | XR ---
EXAMINATION TYPE: XR chest 2V DATE OF EXAM: 07/09/2022 COMPARISON: October 2020 HISTORY: Chest pain TECHNIQUE: 2 view FINDINGS: Heart and mediastinum are normal. Lungs are clear. There is no pneumothorax IMPRESSION: Normal chest
[2022-07-09 05:48] LABS: Basophils # (A) 0.1 k/uL (0-0.2); Basophils % (A) 1 %; Eosinophils # (A) 0.3 k/uL (0-0.7); Eosinophils % (A) 2 %; HCT 40.9 % (39.0-53.0); HGB 13.4 gm/dL (13.0-17.5); Lymphocytes # (A) 3.1 k/uL (1.0-4.8); Lymphocytes % (A) 26 %; MCH 25.2 pg (25.0-35.0); MCHC 32.7 g/dL (31.0-37.0); MCV 77.1 fL (80.0-100.0); Mean Platelet Volume 7.9; Monocytes # (A) 0.7 k/uL (0-1.0); Monocytes % (A) 6 %; Neutrophils # (A) 7.6 k/uL (1.3-7.7); Neutrophils % (A) 64 %; Platelet Count 316 k/uL (150-450); RBC 5.31 m/uL (4.30-5.90); RDW 14.3 % (11.5-15.5); WBC 11.9 k/uL (3.8-10.6)
[2022-07-09 06:11] LABS: ALT 81 U/L (4-49); AST 37 U/L (17-59); African American GFR (CKD) >90 (>60 ml/min/1.73 sqM); Albumin 4.4 g/dL (3.5-5.0); Alkaline Phosphatase 56 U/L (38-126); Anion Gap 10 mmol/L; Blood Urea Nitrogen 16 mg/dL (9-20); Calcium 9.4 mg/dL (8.4-10.2); Carbon Dioxide 26 mmol/L (22-30); Chloride 104 mmol/L (98-107); Glucose 141 mg/dL (74-99); Magnesium 1.9 mg/dL (1.6-2.3); Non-African American GFR(CKD) >90 (>60 ml/min/1.73 sqM); Potassium 4.2 mmol/L (3.5-5.1); Sodium 140 mmol/L (137-145); Total Bilirubin 0.5 mg/dL (0.2-1.3); Total Protein 6.9 g/dL (6.3-8.2)
[2022-07-09 06:22] LABS: INR 0.9 (<1.2); Partial Thromboplastin Time 24.1 sec (22.0-30.0); Prothrombin Time 9.7 sec (9.0-12.0)
--- NOTE | 2022-07-09 06:46 | ED ---
SOB HPI - General Chief Complaint: Shortness of Breath Stated Complaint: REJI Time Seen by Provider: 07/09/22 05:00 Source: patient Mode of arrival: ambulatory Limitations: no limitations - History of Present Illness Initial Comments: This patient is 22-year-old man with history of autism and recent covid infection who presents with complaint that he has been feeling short of breath and has some chest tightness going back 1-2 hours before coming in. History is also given by the patient's grandmother who is with him. Patient has not noted fever or chills. There is occasional cough, nonproductive. No anginal type symptoms, no diaphoresis, nausea or vomiting, palpitations or syncope. No leg pain or swelling. MD Complaint: shortness of breath, chest pain -: hour(s) Severity: mild Quality: other (Tight) Consistency: now resolved Improves With: nothing Worsens With: nothing Known History Of: other (Covid infection) Treatments Prior to Arrival: none - Related Data Home Oxygen Therapy: No Home Medications Medication Instructions Recorded Confirmed Ergocalciferol [Vitamin D2 50,000 unit PO TENA 12/09/18 03/09/19 (DRISDOL)] Loratadine [Claritin] 10 mg PO DAILY 12/09/18 03/09/19 Methylphenidate HCl [Ritalin] 20 mg PO DAILY 12/09/18 03/09/19 Montelukast [Singulair] 10 mg PO HS 12/09/18 03/09/19 Sertraline [Zoloft] 200 mg PO DAILY 12/09/18 03/09/19 cloNIDine HCL [Catapres] 0.1 mg PO HS 12/09/18 03/09/19 ARIPiprazole [Abilify] 2 mg PO DAILY 03/09/19 03/09/19 Albuterol Inhaler [Ventolin Hfa 1 - 2 puff INHALATION RT-Q6H PRN 03/09/19 03/09/19 Inhaler] Multivitamins, Thera [Multivitamin 1 tab PO DAILY 03/09/19 03/09/19 (formulary)] Triamcinolone Acetonide [Nasacort] 1 spray EA NOSTRIL HS 03/09/19 03/09/19 Previous Rx's Medication Instructions Recorded hydroCHLOROthiazide 25 mg PO DAILY #60 tab 09/19/22 Hydrocortisone [Anusol-Hc] 1 applic RECTAL BID #30 gm 07/09/22 Allergies Allergy/AdvReac Type Severity Reaction Status Date / Time No Known Allergies Allergy Verified 07/09/22 04:40 Review of Systems ROS Statement: Those systems with pertinent positive or pertinent negative responses have been documented in the HPI. ROS Other: All systems not noted in ROS Statement are negative. Constitutional: Denies: fever, chills, weakness Respiratory: Reports: as per HPI, cough, dyspnea. Denies: wheezes, hemoptysis, stridor Cardiovascular: Reports: as per HPI, chest pain. Denies: palpitations, orthopnea, edema, syncope Gastrointestinal: Denies: abdominal pain, nausea, vomiting Genitourinary: Denies: dysuria, hematuria Musculoskeletal: Denies: back pain Skin: Denies: rash Neurological: Denies: headache, weakness Past Medical History Past Medical History: Asthma, Seizure Disorder Additional Past Medical History / Comment(s): Autism, VNS Device implanted History of Any Multi-Drug Resistant Organisms: None Reported Past Surgical History: No Surgical Hx Reported Past Psychological History: ADD/ADHD, Anxiety, Depression Smoking Status: Never smoker Past Alcohol Use History: None Reported Past Drug Use History: None Reported General Exam Limitations: no limitations General appearance: alert, in no apparent distress Head exam: Present: atraumatic, normocephalic Eye exam: Present: normal appearance. Absent: scleral icterus, conjunctival injection ENT exam: Present: normal oropharynx Neck exam: Present: normal inspection Respiratory exam: Present: normal lung sounds bilaterally. Absent: respiratory distress, wheezes, rales, rhonchi, stridor Cardiovascular Exam: Present: regular rate, normal rhythm, normal heart sounds. Absent: systolic murmur, diastolic murmur, rubs, gallop GI/Abdominal exam: Present: soft. Absent: distended, tenderness, guarding, rebound, rigid, mass Extremities exam: Present: normal inspection, normal capillary refill. Absent: pedal edema, calf tenderness Back exam: Present: normal inspection. Absent: CVA tenderness (R), CVA tenderness (L) Neurological exam: Present: alert Skin exam: Present: warm, dry, intact, normal color. Absent: rash Course Vital Signs 07/09/22 07/09/22 07/09/22 04:38 05:43 07:05 Temperature 98.7 F Pulse Rate 104 H 89 Pulse Rate [ 109 H Roller Helper ] Respiratory 22 18 Rate Blood Pressure 151/101 147/76 O2 Sat by Pulse 97 98 Oximetry Medical Decision Making - Medical Decision Making This patient is 22-year-old man here with chest symptoms following recent code infection. I interpreted the chest x-ray as showing a normal cardiac silhouette and no infiltrate. Patient feeling better here in emergency department. Will have patient follow with his primary physician and discussed possibility of having echocardiogram for further evaluation of chest pains as well as possibility of Holter monitor if there is any palpitation accompanying. Respiratory further care and follow-up. Discussed return parameters. Was pt. sent in by a medical professional or institution? @ -no Did you speak to anyone other than the patient for history? @ -[The patient's grandmother Did you review nursing and triage notes? @ -[agree Were old charts reviewed? @ -[No Differential Diagnosis? @ -[Differential Chest Pain: Pulmonary embolism, pericarditis, STEMI, NSTEMI Aortic Dissection, Pneumothorax, Musculoskeletal, Esophageal Spasm GERD, Cholecystitis, Pancreatitis, this is not meant to be an all-inclusive list. EKG interpreted by me (3pts min.)? @ -see chart X-rays interpreted by me (1pt min.)? @ -[see chart CT interpreted by me (1pt min.)? @ -[none] U/S interpreted by me (1pt. min.)? @ -[none] What testing was considered but not performed? (CT, X-rays, U/S, labs)? Why? @ [CT, X-rays, U/S, labs? Why?] What meds were considered but not given? Why? @ -[none] Did you discuss the management of the patient with other professionals? @ -[no] Did you reconcile home meds? @ -[none] Was smoking cessation discussed for >3mins.? @ -[none] Was critical care preformed (if so, how long)? @ -[none] Were there social determinants of health that impacted care today? How? (Homelessness, low income, unemployed, alcoholism, drug addiction, transportation, low edu. Level, literacy, decrease access to med. care, senior care, rehab)? @ -[none] Was there de-escalation of care discussed even if they declined? (Discuss DNR or withdrawal of care, Hospice)? @ -[no] What co-morbidities impacted this encounter? (DM, HTN, Smoking, COPD, CAD, Cancer, CVA, Hep., AIDS, mental health diagnosis, sleep apnea, morbid obesity)? @ -[none] Was patient admitted / discharged? @ -[hospital course] Undiagnosed new problem with uncertain prognosis? @ -[none] Drug Therapy requiring intensive monitoring for toxicity (Heparin, Nitro, Insulin, Cardizem)? @ -[none] Were any procedures done? @ -[none] Diagnosis/symptom? @ -[Chest pain Acute, or Chronic, or Acute on Chronic? @ -[Acute Uncomplicated (without systemic symptoms) or Complicated (systemic symptoms)? @ -[Uncomplicated] Side effects of treatment? @ -[none] Exacerbation, Progression, or Severe Exacerbation] @ -[no] Poses a threat to life or bodily function? @ -[no] - Lab Data Result diagrams: 07/09/22 05:41 07/09/22 05:41 Lab Results 07/09/22 07/09/22 07/09/22 Range/Units 05:41 05:41 05:41 WBC 11.9 H (3.8-10.6) k/uL RBC 5.31 (4.30-5.90) m/uL Hgb 13.4 (13.0-17.5) gm/dL Hct 40.9 (39.0-53.0) % MCV 77.1 L (80.0-100.0) fL MCH 25.2 (25.0-35.0) pg MCHC 32.7 (31.0-37.0) g/dL RDW 14.3 (11.5-15.5) % Plt Count 316 (150-450) k/uL MPV 7.9 Neutrophils % 64 % Lymphocytes % 26 % Monocytes % 6 % Eosinophils % 2 % Basophils % 1 % Neutrophils # 7.6 (1.3-7.7) k/uL Lymphocytes # 3.1 (1.0-4.8) k/uL Monocytes # 0.7 (0-1.0) k/uL Eosinophils # 0.3 (0-0.7) k/uL Basophils # 0.1 (0-0.2) k/uL PT 9.7 (9.0-12.0) sec INR 0.9 (<1.2) APTT 24.1 (22.0-30.0) sec D-Dimer 0.24 (<0.60) mg/L FEU Sodium 140 (137-145) mmol/L Potassium 4.2 (3.5-5.1) mmol/L Chloride 104 (98-107) mmol/L Carbon Dioxide 26 (22-30) mmol/L Anion Gap 10 mmol/L BUN 16 (9-20) mg/dL Creatinine 0.59 L (0.66-1.25) mg/dL Est GFR (CKD-EPI)AfAm >90 (>60 ml/min/1.73 sqM) Est GFR (CKD-EPI)NonAf >90 (>60 ml/min/1.73 sqM) Glucose 141 H (74-99) mg/dL Calcium 9.4 (8.4-10.2) mg/dL Magnesium 1.9 (1.6-2.3) mg/dL Total Bilirubin 0.5 (0.2-1.3) mg/dL AST 37 (17-59) U/L ALT 81 H (4-49) U/L Alkaline Phosphatase 56 (38-126) U/L Troponin I (0.000-0.034) ng/mL Total Protein 6.9 (6.3-8.2) g/dL Albumin 4.4 (3.5-5.0) g/dL 07/09/22 Range/Units 05:41 WBC (3.8-10.6) k/uL RBC (4.30-5.90) m/uL Hgb (13.0-17.5) gm/dL Hct (39.0-53.0) % MCV (80.0-100.0) fL MCH (25.0-35.0) pg MCHC (31.0-37.0) g/dL RDW (11.5-15.5) % Plt Count (150-450) k/uL MPV Neutrophils % % Lymphocytes % % Monocytes % % Eosinophils % % Basophils % % Neutrophils # (1.3-7.7) k/uL Lymphocytes # (1.0-4.8) k/uL Monocytes # (0-1.0) k/uL Eosinophils # (0-0.7) k/uL Basophils # (0-0.2) k/uL PT (9.0-12.0) sec INR (<1.2) APTT (22.0-30.0) sec D-Dimer (<0.60) mg/L FEU Sodium (137-145) mmol/L Potassium (3.5-5.1) mmol/L Chloride (98-107) mmol/L Carbon Dioxide (22-30) mmol/L Anion Gap mmol/L BUN (9-20) mg/dL Creatinine (0.66-1.25) mg/dL Est GFR (CKD-EPI)AfAm (>60 ml/min/1.73 sqM) Est GFR (CKD-EPI)NonAf (>60 ml/min/1.73 sqM) Glucose (74-99) mg/dL Calcium (8.4-10.2) mg/dL Magnesium (1.6-2.3) mg/dL Total Bilirubin (0.2-1.3) mg/dL AST (17-59) U/L ALT (4-49) U/L Alkaline Phosphatase (38-126) U/L Troponin I <0.012 (0.000-0.034) ng/mL Total Protein (6.3-8.2) g/dL Albumin (3.5-5.0) g/dL - EKG Data -: EKG Interpreted by [facility] EKG shows normal: sinus rhythm, axis (Normal), intervals (Normal) Rate: tachycardia (Rate 101 bpm) Disposition Clinical Impression: Chest pain Disposition: HOME SELF-CARE Condition: Good Instructions (If sedation given, give patient instructions): Chest Pain (ED) Prescriptions: Hydrocortisone [Anusol-Hc] 1 applic RECTAL BID #30 gm Is patient prescribed a controlled substance at d/c from ED?: No Referrals: Corry Gaspar MD [Primary Care Provider] - 1-2 days
[2022-07-09 07:05] VITALS: BP 147/76; PULSE 89; RESP 18
== END 2022-07-09 07:06 | disposition home or self-care (01) ==
LOC: EC 04:33
DX: R07.89 Other chest pain (principal); J45.909 Unspecified asthma, uncomplicated; F41.9 Anxiety disorder, unspecified; F32.A Depression, unspecified; Z79.899 Other long term (current) drug therapy
CPT/HCPCS: 36415; 71046; 80053; 83735; 84484; 85025; 85379; 85610; 85730; 93005; 99285

== ENCOUNTER 2022-09-28 07:20 | Day surgery (SDC) | payer OTHER ==
[2022-09-28] MEDS ORDERED: LIDOCAINE 1% (10MG/ML) FOR IV START INTRADERMA PRN (07:56)
[2022-09-28] MEDS ORDERED: LACTATED RINGERS 1,000 ML IV SCH (07:56)
[2022-09-28 08:04] VITALS: TEMP 97.8
[2022-09-28 08:14] LABS: Glucose,Whole Blood 114 mg/dL (70-110)
[2022-09-28] MEDS ORDERED: PROPOFOL 10 MG/ML 20 ML VIAL IV ONE (08:42)
--- NOTE | 2022-09-28 08:56 | P.OP ---
Date of Procedure: 09/28/22 Preoperative Diagnosis: Rectal bleeding Postoperative Diagnosis: Internal hemorrhoids Procedure(s) Performed: Colonoscopy Anesthesia: MAC Surgeon: Ac Fernando Pathology: none sent Condition: stable Disposition: PACU Description of Procedure: The patient's placed on the endoscopy table in the lateral position. He received IV sedation. Digital rectal exam was performed. This revealed internal hemorrhoids. Flexible colonoscope was then placed patient anus and passed throughout the entire colon. The ileocecal valve was visually is. The cecum, ascending and transverse colon appeared normal. The descending and sigmoid colon appeared normal. Scope was brought back the rectum and internal hemorrhoids were noted. Scope was then withdrawn for patient. There is no evidence of any active GI bleed. Presumed patient's bleeding from internal hemorrhoids.
[2022-09-28 09:26] VITALS: RESP 18
[2022-09-28 09:30] VITALS: BP 120/78; PULSE 83
== END 2022-09-28 09:57 | disposition home or self-care (01) ==
LOC: ORWHC2ENDO 07:20
PROVIDERS: ATTEND Surgery
DX: K62.5 Hemorrhage of anus and rectum (principal); K64.8 Other hemorrhoids; F41.9 Anxiety disorder, unspecified; F84.5 Asperger's syndrome; J45.909 Unspecified asthma, uncomplicated; K21.9 Gastro-esophageal reflux disease without esophagitis; Z79.899 Other long term (current) drug therapy
CPT/HCPCS: 45378; J2704

== ENCOUNTER 2022-11-07 05:53 | Day surgery (SDC) | payer OTHER ==
[~2022-11-07 05:53] MED LIST: ACETAMINOPHEN TAB 500 MG TAB PO PRN; HEPARIN SODIUM,PORCINE/PF 5,000 UNIT/0.5 ML SYRINGE SQ PRN; HYDROmorphone 0.5 MG/0.5 ML SYRINGE IVP PRN; LACTATED RINGERS 1,000 ML IV SCH; ONDANSETRON 4 MG/2 ML VIAL IVP ONE; Pre Op ABX Message 1 EACH MISC MISCELLANE ONE; fentaNYL (PF) 50 MCG/ML 2 ML AMP IV PRN
[2022-11-07] MEDS ORDERED: ONDANSETRON 4 MG/2 ML VIAL IVP ONE (07:04)
[2022-11-07] MEDS ORDERED: DEXAMETHASONE SOD PHOSPHATE 4 MG/ML 1 ML VIAL IVP ONE (07:05)
[2022-11-07] MEDS ORDERED: ONDANSETRON 4 MG/2 ML VIAL ONE (07:08)
[2022-11-07 07:23] LABS: Glucose,Whole Blood 120 mg/dL (70-110)
[2022-11-07] MEDS ORDERED: KETOROLAC 30 MG/ML 1 ML VIAL ONE (07:42)
[2022-11-07] MEDS ORDERED: ROCURONIUM 10 MG/ML (5 ML VIAL) IV ONE (07:42)
[2022-11-07] MEDS ORDERED: MIDAZOLAM 2 MG/2 ML VIAL ONE (07:42)
[2022-11-07] MEDS ORDERED: LIDOCAINE 2% INJ 20 MG/ML (2 ML VIAL) ONE (07:42)
[2022-11-07] MEDS ORDERED: PROPOFOL 10 MG/ML 20 ML VIAL IV ONE (07:42)
[2022-11-07] MEDS ORDERED: NEOSTIGMINE 1 MG/ML 10 ML VIAL ONE (07:42)
[2022-11-07] MEDS ORDERED: SUCCINYLCHOLINE CHLORIDE 200 MG/10 ML VIAL IV ONE (07:42)
[2022-11-07] MEDS ORDERED: GLYCOPYRROLATE 0.2 MG/ML 2 ML VIAL ONE (07:42)
[2022-11-07] MEDS ORDERED: fentaNYL (PF) 50 MCG/ML 2 ML AMP ONE (07:42)
[2022-11-07] MEDS ORDERED: BUPIVACAIN-EPI 0.5%-1:200,000 30 ML VIAL SQ ONE (08:05)
[2022-11-07] MEDS ORDERED: LACTATED RINGERS 1,000 ML IV ONE (08:19)
--- NOTE | 2022-11-07 08:29 | P.OP ---
Date of Procedure: 11/07/22 Preoperative Diagnosis: Internal and external hemorrhoids Postoperative Diagnosis: Genital external hemorrhoids Procedure(s) Performed: Internal and external hemorrhoidectomy Anesthesia: MADONNA Surgeon: Ac Fernando Pathology: other (Internal and external hemorrhoids) Condition: stable Disposition: PACU Description of Procedure: The placed on the operative table in the prone jackknife position after receiving general endotracheal tube anesthesia. His anus was prepped and draped usual sterile fashion. The anus exam. Patient had several large hemorrhoidal columns. Anal retractors placed anus. And then the left lateral hemorrhoidal column was grasped with Allis clamp. The Harmonic scissors the hemorrhoidectomy is performed. Next the right anterior and right posterior hemorrhoidal column was dissected in identical fashion. Anal block was performed 1% local Xylocaine. A piece of Gelfoam was placed anus. Patient top she will was sent to recovery room in stable condition.
[2022-11-07 08:46] VITALS: TEMP 97.6
[2022-11-07 10:46] VITALS: RESP 20
[2022-11-07 10:51] VITALS: BP 107/63; PULSE 76
== END 2022-11-07 11:28 | disposition home or self-care (01) ==
LOC: OR 05:53
PROVIDERS: ATTEND Surgery
DX: K64.4 Residual hemorrhoidal skin tags (principal); K64.8 Other hemorrhoids; I10 Essential (primary) hypertension; E78.5 Hyperlipidemia, unspecified; J45.909 Unspecified asthma, uncomplicated; E11.9 Type 2 diabetes mellitus without complications; F90.9 Attention-deficit hyperactivity disorder, unspecified type; F84.0 Autistic disorder; F41.9 Anxiety disorder, unspecified; Z86.73 Personal history of transient ischemic attack (TIA), and cerebral infarction without residual deficits; Z79.51 Long term (current) use of inhaled steroids; Z79.84 Long term (current) use of oral hypoglycemic drugs; Z79.899 Other long term (current) drug therapy; Z88.8 Allergy status to other drugs, medicaments and biological substances; Z81.8 Family history of other mental and behavioral disorders
CPT/HCPCS: 88304; 46260; J2250; J0330; J1100; J2710; J2405; J3010; J1885; J2704; J1644; J2001

== ENCOUNTER 2022-11-28 19:31 | Emergency (ER) | payer OTHER ==
[2022-11-28 19:44] VITALS: TEMP 97.9
--- NOTE | 2022-11-28 21:39 | ED ---
General Adult HPI - General Source: patient, RN notes reviewed Mode of arrival: ambulatory Limitations: no limitations <Meli Sims - Last Filed: 11/28/22 21:39> <Efren Meyers - Last Filed: 11/29/22 05:10> - General Chief complaint: Abdominal Pain Stated complaint: RECHECK-POSS INFECTION Time Seen by Provider: 11/28/22 21:39 - History of Present Illness Initial comments: Patient is a 22-year-old male presenting with chief complaint of rectal pain and discharge status post hemorrhoidectomy. (Meli Sims) Patient is 3 weeks postop hemorrhoidectomy with continued rectal bleeding and drainage. No fevers. No abdominal pain. (Efren Meyers) - Related Data Home Medications Medication Instructions Recorded Confirmed Ergocalciferol [Vitamin D2 50,000 unit PO TENA 12/09/18 11/07/22 (DRISDOL)] Loratadine [Claritin] 10 mg PO QAM 12/09/18 11/07/22 Montelukast [Singulair] 10 mg PO HS 12/09/18 11/07/22 Sertraline [Zoloft] 200 mg PO QAM 12/09/18 11/07/22 cloNIDine HCL [Catapres] 0.1 mg PO HS 12/09/18 11/07/22 ARIPiprazole [Abilify] 5 mg PO QAM 03/09/19 11/07/22 Albuterol Inhaler [Ventolin Hfa 1 - 2 puff INHALATION RT-Q6H PRN 03/09/19 11/07/22 Inhaler] Triamcinolone Acetonide [Nasacort] 1 spray EA NOSTRIL 03/09/19 11/07/22 Acetaminophen Tab [Tylenol] 500 mg PO Q6HR PRN 09/26/22 11/07/22 Cyanocobalamin (Vitamin B-12) 1,000 mg PO QAM 09/26/22 11/07/22 [Vitamin B-12] Empagliflozin [Jardiance] 10 mg PO HS 09/26/22 11/07/22 Lacosamide [Vimpat] 100 mg PO BID 09/26/22 11/07/22 Omeprazole [PriLOSEC] 20 mg PO QAM 09/26/22 11/07/22 Rosuvastatin [Crestor] 5 mg PO HS 09/26/22 11/07/22 hydrOXYzine HCL 10 mg PO ONCE PRN 09/26/22 11/07/22 lisinopriL [Zestril] 5 mg PO QAM 09/26/22 11/07/22 Previous Rx's Medication Instructions Recorded Hydrocortisone [Anusol-Hc] 1 applic RECTAL BID #30 gm 07/09/22 Acetaminophen Tab [Tylenol] 650 mg PO Q6H #30 tab 11/07/22 Docusate [Colace] 100 mg PO BID #20 capsule 11/07/22 Ibuprofen [Motrin] 600 mg PO Q6HR PRN #40 tab 11/07/22 oxyCODONE HCL [OxyIR] 5 mg PO Q6H PRN 3 Days #10 tab 11/07/22 Docusate [Colace] 100 mg PO BID #60 capsule 11/29/22 HYDROcodone/APAP 5-325MG [Twining 1 tab PO Q6HR PRN #12 tab 11/29/22 5-325] Allergies Allergy/AdvReac Type Severity Reaction Status Date / Time latex Allergy Rash/Hives Verified 11/07/22 06:59 pollen extracts Allergy Dyspnea Verified 11/07/22 06:59 Review of Systems ROS Other: All systems not noted in ROS Statement are negative. <Meli Sims - Last Filed: 11/28/22 21:39> ROS Other: All systems not noted in ROS Statement are negative. <Efren Meyers - Last Filed: 11/29/22 05:10> ROS Statement: Those systems with pertinent positive or pertinent negative responses have been documented in the HPI. Past Medical History Past Medical History: Asthma, Diabetes Mellitus, GERD/Reflux, GI Bleed, Hyperlipidemia, Hypertension, Seizure Disorder Additional Past Medical History / Comment(s): Rectal bleed/hemorrhoids, VNS Device implanted L shoulder/Mally Larkin at [facility] in [place] d/t seizures, epilepsy diagnosed 2 years ago (2020), last seizure 11/02/22, "borderline" diabetes, back pain, poor dentation. History of Any Multi-Drug Resistant Organisms: None Reported Past Surgical History: No Surgical Hx Reported Additional Past Surgical History / Comment(s): 09/2022 colonoscopy, VNS device implant L shoulder HEMORRHOID ECTOMY Past Anesthesia/Blood Transfusion Reactions: No Reported Reaction Additional Past Anesthesia/Blood Transfusion Reaction / Comment(s): Pt has never had blood transfusion. Past Psychological History: ADD/ADHD, Anxiety, Depression Smoking Status: Never smoker - Past Family History Mother Family Medical History: Skin Disorder Additional Family Medical History / Comment(s): Psoriasis <Meli Sims - Last Filed: 11/28/22 21:39> General Exam Limitations: no limitations <Meli Sims - Last Filed: 11/28/22 21:39> General appearance: alert, in no apparent distress Head exam: Present: atraumatic, normocephalic Eye exam: Present: normal appearance Neck exam: Present: normal inspection. Absent: tenderness, meningismus Respiratory exam: Present: normal lung sounds bilaterally. Absent: respiratory distress, wheezes Cardiovascular Exam: Present: regular rate, normal rhythm GI/Abdominal exam: Present: soft. Absent: distended, tenderness, guarding Rectal exam: Present: tenderness, other (Bloody and purulent discharge). Absent: hemorrhoids Extremities exam: Present: normal inspection, normal capillary refill Neurological exam: Present: alert, oriented X3, CN II-XII intact. Absent: motor sensory deficit Psychiatric exam: Present: normal affect, normal mood Skin exam: Present: warm, dry <Efren Meyers - Last Filed: 11/29/22 05:10> - General Exam Comments Initial Comments: Visual Physical Exam Vital signs reviewed General: Well-appearing, nontoxic, no acute distress. Head: Normocephalic, atraumatic Eyes: PERRLA, EOMI ENT: Airway patent Chest: Nonlabored breathing Skin: No visual rash, normal skin tone Neuro: Alert and oriented 3 Musculoskeletal: No gross abnormalities (Meli Sims) Course Vital Signs 11/28/22 11/29/22 19:41 01:48 Temperature 97.9 F Pulse Rate 100 95 Respiratory 20 17 Rate Blood Pressure 139/80 140/77 O2 Sat by Pulse 98 99 Oximetry Medical Decision Making - Lab Data Result diagrams: 11/29/22 00:05 11/29/22 00:05 <Efren Meyers - Last Filed: 11/29/22 05:10> - Medical Decision Making Was pt. sent in by a medical professional or institution ([facility], [facility] [employer], urgent care, hospital, or skilled nursing...) When possible be specific @ -No Did you speak to anyone other than the patient for history (EMS, parent, family, police, friend...)? What history was obtained from this source @Patient's great-grandmother who is at bedside Did you review nursing and triage notes (agree or disagree)? Why? @ -I reviewed and agree with nursing and triage notes Were old charts reviewed (outside hosp., previous admission, EMS record, old EKG, old radiological studies, urgent care reports/EKG's, skilled nursing records)? Report findings @ -No old charts were reviewed Differential Diagnosis (chest pain, altered mental status, abdominal pain women, abdominal pain men, vaginal bleeding, weakness, fever, dyspnea, syncope, h eadache, dizziness, GI bleed, back pain, seizure, CVA, palpatations, mental health, musculoskeletal)? @Perirectal abscess, hemorrhoid, proctitis EKG interpreted by me (3pts min.). @ -As above X-rays interpreted by me (1pt min.). @ -None done CT interpreted by me (1pt min.). @ -None done U/S interpreted by me (1pt. min.). @ -None done What testing was considered but not performed or refused? (CT, X-rays, U/S, labs)? Why? @ -None What meds were considered but not given or refused? Why? @ -None Did you discuss the management of the patient with other professionals (professionals i.e. [facility], [employer] [employer], lab, RT, psych nurse, director social service, director of student services, teacher, consumer loan officer, caseworker protective services)? Give summary @ -[Case discussed with the patient's surgeon Dr. Machadoania Was smoking cessation discussed for >3mins.? @ -No Was critical care preformed (if so, how long)? @ -No Were there social determinants of health that impacted care today? How? (Homelessness, low income, unemployed, alcoholism, drug addiction, transportation, low edu. Level, literacy, decrease access to med. care, assisted, rehab)? @ -No Was there de-escalation of care discussed even if they declined (Discuss DNR or withdrawal of care, Hospice)? DNR status @ -No What co-morbidities impacted this encounter? (DM, HTN, Smoking, COPD, CAD, Cancer, CVA, ARF, Chemo, Hep., AIDS, mental health diagnosis, sleep apnea, morbid obesity)? @ -None Was patient admitted / discharged? Hospital course, mention meds given and route, prescriptions, significant lab abnormalities, going to OR and other pertinent info. @ Patient with postoperative healing from hemorrhoidectomy. Case discussed with Dr. Fernando who recommends sitz bath, stool softeners, fiber and increase fluid in the diet. Patient should follow up as an outpatient. Undiagnosed new problem with uncertain prognosis? @ -No Drug Therapy requiring intensive monitoring for toxicity (Heparin, Nitro, Insulin, Cardizem)? @ -No Were any procedures done? @ -No Diagnosis/symptom? @ -[Post hemorrhoidectomy pain Acute, or Chronic, or Acute on Chronic? @Acute Uncomplicated (without systemic symptoms) or Complicated (systemic symptoms)? @ -default Side effects of treatment? @ -No Exacerbation, Progression, or Severe Exacerbation? @ -No Poses a threat to life or bodily function? How? (Chest pain, [place], [place], pneumonia, PE, COPD, DKA, ARF, appy, cholecystitis, CVA, Diverticulitis, Homicidal, Suicidal, threat to staff... and all critical care pts) @ -No (Efren Meyers) - Lab Data Lab Results 11/29/22 11/29/22 Range/Units 00:05 00:05 WBC 13.6 H (3.8-10.6) k/uL RBC 5.77 (4.30-5.90) m/uL Hgb 13.7 (13.0-17.5) gm/dL Hct 43.5 (39.0-53.0) % MCV 75.4 L (80.0-100.0) fL MCH 23.8 L (25.0-35.0) pg MCHC 31.6 (31.0-37.0) g/dL RDW 15.0 (11.5-15.5) % Plt Count 413 (150-450) k/uL MPV 7.5 Neutrophils % 69 % Lymphocytes % 21 % Monocytes % 6 % Eosinophils % 4 % Basophils % 0 % Neutrophils # 9.3 H (1.3-7.7) k/uL Lymphocytes # 2.8 (1.0-4.8) k/uL Monocytes # 0.8 (0-1.0) k/uL Eosinophils # 0.5 (0-0.7) k/uL Basophils # 0.1 (0-0.2) k/uL Microcytosis Slight Sodium 138 (137-145) mmol/L Potassium 4.5 (3.5-5.1) mmol/L Chloride 101 (98-107) mmol/L Carbon Dioxide 23 (22-30) mmol/L Anion Gap 14 mmol/L BUN 19 (9-20) mg/dL Creatinine 0.66 (0.66-1.25) mg/dL Est GFR (CKD-EPI)AfAm >90 (>60 ml/min/1.73 sqM) Est GFR (CKD-EPI)NonAf >90 (>60 ml/min/1.73 sqM) Glucose 117 H (74-99) mg/dL Calcium 9.8 (8.4-10.2) mg/dL Total Bilirubin 0.7 (0.2-1.3) mg/dL AST 38 (17-59) U/L ALT 56 H (4-49) U/L Alkaline Phosphatase 60 (38-126) U/L Total Protein 7.8 (6.3-8.2) g/dL Albumin 4.7 (3.5-5.0) g/dL Amylase 37 (30-110) U/L Lipase 54 (23-300) U/L Disposition <Meli Sims - Last Filed: 11/28/22 21:39> Is patient prescribed a controlled substance at d/c from ED?: No Time of Disposition: 00:47 <Efren Meyers - Last Filed: 11/29/22 05:10> Clinical Impression: Status post hemorrhoidectomy Disposition: HOME SELF-CARE Condition: Fair Instructions (If sedation given, give patient instructions): Hemorrhoidectomy (DC) Prescriptions: Docusate [Colace] 100 mg PO BID #60 capsule HYDROcodone/APAP 5-325MG [Twining 5-325] 1 tab PO Q6HR PRN #12 tab PRN Reason: Pain Referrals: Corry Gaspar MD [Primary Care Provider] - 1-2 days Ac Fernando MD [STAFF PHYSICIAN] - 1-2 days
--- NOTE | 2022-11-29 00:07 | XR ---
EXAMINATION TYPE: XR KUB DATE OF EXAM: 11/29/2022 COMPARISON: None INDICATION: Hemorrhoidectomy, severe pain and yellow discharge TECHNIQUE: Single view abdomen frontal projection FINDINGS: There is a normal bowel gas pattern. Psoas margins are normal. No organomegaly is present. Discrete abnormality of the low rectum is not identified by radiograph. IMPRESSION: 1. Unremarkable Abdomen
[2022-11-29 00:28] LABS: Basophils # (A) 0.1 k/uL (0-0.2); Basophils % (A) 0 %; Eosinophils # (A) 0.5 k/uL (0-0.7); Eosinophils % (A) 4 %; HCT 43.5 % (39.0-53.0); HGB 13.7 gm/dL (13.0-17.5); Lymphocytes # (A) 2.8 k/uL (1.0-4.8); Lymphocytes % (A) 21 %; MCH 23.8 pg (25.0-35.0); MCHC 31.6 g/dL (31.0-37.0); MCV 75.4 fL (80.0-100.0); Mean Platelet Volume 7.5; Microcytosis Slight; Monocytes # (A) 0.8 k/uL (0-1.0); Monocytes % (A) 6 %; Neutrophils # (A) 9.3 k/uL (1.3-7.7); Neutrophils % (A) 69 %; Platelet Count 413 k/uL (150-450); RBC 5.77 m/uL (4.30-5.90); WBC 13.6 k/uL (3.8-10.6)
[2022-11-29] MEDS ORDERED: HYDROcodone/APAP 5-325MG 1 EACH TAB PO STA (00:41)
[2022-11-29 00:45] LABS: ALT 56 U/L (4-49); AST 38 U/L (17-59); African American GFR (CKD) >90 (>60 ml/min/1.73 sqM); Albumin 4.7 g/dL (3.5-5.0); Alkaline Phosphatase 60 U/L (38-126); Amylase 37 U/L (30-110); Anion Gap 14 mmol/L; Blood Urea Nitrogen 19 mg/dL (9-20); Calcium 9.8 mg/dL (8.4-10.2); Carbon Dioxide 23 mmol/L (22-30); Chloride 101 mmol/L (98-107); Glucose 117 mg/dL (74-99); Lipase 54 U/L (23-300); Non-African American GFR(CKD) >90 (>60 ml/min/1.73 sqM); Potassium 4.5 mmol/L (3.5-5.1); Sodium 138 mmol/L (137-145); Total Bilirubin 0.7 mg/dL (0.2-1.3); Total Protein 7.8 g/dL (6.3-8.2)
[2022-11-29 01:49] VITALS: BP 140/77; PULSE 95; RESP 17
== END 2022-11-29 01:48 | disposition home or self-care (01) ==
LOC: EC 19:31
DX: G89.18 Other acute postprocedural pain (principal); E11.9 Type 2 diabetes mellitus without complications; I10 Essential (primary) hypertension; J45.909 Unspecified asthma, uncomplicated; K21.9 Gastro-esophageal reflux disease without esophagitis; E78.5 Hyperlipidemia, unspecified; G40.909 Epilepsy, unspecified, not intractable, without status epilepticus; F32.A Depression, unspecified; F41.9 Anxiety disorder, unspecified; Z79.84 Long term (current) use of oral hypoglycemic drugs; Z79.899 Other long term (current) drug therapy; Z91.040 Latex allergy status; Z91.048 Other nonmedicinal substance allergy status; Z98.890 Other specified postprocedural states
CPT/HCPCS: 36415; 74018; 80053; 82150; 83690; 85025; 99284

== ENCOUNTER 2022-12-15 00:04 | Emergency (ER) | payer OTHER ==
[2022-12-15 00:17] VITALS: BP 132/84; PULSE 88; RESP 18; TEMP 96.6
[2022-12-15] MEDS ORDERED: KETOROLAC 15 MG/ML 1 ML VIAL IVP STA (00:29)
[2022-12-15 00:55] LABS: Basophils # (A) 0.1 k/uL (0-0.2); Basophils % (A) 0 %; Eosinophils # (A) 0.6 k/uL (0-0.7); Eosinophils % (A) 5 %; HCT 43.4 % (39.0-53.0); HGB 13.8 gm/dL (13.0-17.5); Lymphocytes % (A) 22 %; MCH 24.2 pg (25.0-35.0); MCHC 31.9 g/dL (31.0-37.0); MCV 75.8 fL (80.0-100.0); Mean Platelet Volume 7.4; Microcytosis Slight; Monocytes # (A) 0.8 k/uL (0-1.0); Monocytes % (A) 6 %; Neutrophils # (A) 8.7 k/uL (1.3-7.7); Neutrophils % (A) 65 %; Platelet Count 324 k/uL (150-450); RBC 5.73 m/uL (4.30-5.90); RDW 15.3 % (11.5-15.5); WBC 13.4 k/uL (3.8-10.6)
[2022-12-15 01:17] LABS: ALT 57 U/L (4-49); AST 37 U/L (17-59); African American GFR (CKD) >90 (>60 ml/min/1.73 sqM); Albumin 4.5 g/dL (3.5-5.0); Alkaline Phosphatase 56 U/L (38-126); Anion Gap 15 mmol/L; Blood Urea Nitrogen 22 mg/dL (9-20); Calcium 9.8 mg/dL (8.4-10.2); Carbon Dioxide 21 mmol/L (22-30); Chloride 104 mmol/L (98-107); Glucose 125 mg/dL (74-99); Non-African American GFR(CKD) >90 (>60 ml/min/1.73 sqM); Potassium 4.3 mmol/L (3.5-5.1); Sodium 140 mmol/L (137-145); Total Bilirubin 0.5 mg/dL (0.2-1.3); Total Protein 7.4 g/dL (6.3-8.2)
--- NOTE | 2022-12-15 01:29 | ED ---
GI Bleed HPI - General Chief complaint: GI Bleed Stated complaint: Rectal Pain Time Seen by Provider: 12/15/22 00:16 Source: patient Mode of arrival: ambulatory Limitations: no limitations - History of Present Illness Initial comments: Patient is a 22-year-old male presenting with chief complaint of rectal pain and bleeding. Patient had hemorrhoidectomy performed on 11/[address] Fernando. Patient has presented to ER previously with similar symptoms, his surgeon was contacted and advised follow-up in the outpatient setting. Patient states that he has not yet followed up in the office. States that this evening he was having increased bleeding and pain. No abdominal pain, vomiting, fever, chills. - Related Data Home Medications Medication Instructions Recorded Confirmed Ergocalciferol [Vitamin D2 50,000 unit PO TENA 12/09/18 11/07/22 (ABDIRASHID)] Loratadine [Claritin] 10 mg PO QAM 12/09/18 11/07/22 Montelukast [Singulair] 10 mg PO HS 12/09/18 11/07/22 Sertraline [Zoloft] 200 mg PO QAM 12/09/18 11/07/22 cloNIDine HCL [Catapres] 0.1 mg PO HS 12/09/18 11/07/22 ARIPiprazole [Abilify] 5 mg PO QAM 03/09/19 11/07/22 Albuterol Inhaler [Ventolin Hfa 1 - 2 puff INHALATION RT-Q6H PRN 03/09/19 11/07/22 Inhaler] Triamcinolone Acetonide [Nasacort] 1 spray EA NOSTRIL 03/09/19 11/07/22 Acetaminophen Tab [Tylenol] 500 mg PO Q6HR PRN 09/26/22 11/07/22 Cyanocobalamin (Vitamin B-12) 1,000 mg PO QAM 09/26/22 11/07/22 [Vitamin B-12] Empagliflozin [Jardiance] 10 mg PO HS 09/26/22 11/07/22 Lacosamide [Vimpat] 100 mg PO BID 09/26/22 11/07/22 Omeprazole [PriLOSEC] 20 mg PO QAM 09/26/22 11/07/22 Rosuvastatin [Crestor] 5 mg PO HS 09/26/22 11/07/22 hydrOXYzine HCL 10 mg PO ONCE PRN 09/26/22 11/07/22 lisinopriL [Zestril] 5 mg PO QAM 09/26/22 11/07/22 Previous Rx's Medication Instructions Recorded Hydrocortisone [Anusol-Hc] 1 applic RECTAL BID #30 gm 07/09/22 Acetaminophen Tab [Tylenol] 650 mg PO Q6H #30 tab 11/07/22 Docusate [Colace] 100 mg PO BID #20 capsule 11/07/22 Ibuprofen [Motrin] 600 mg PO Q6HR PRN #40 tab 11/07/22 oxyCODONE HCL [OxyIR] 5 mg PO Q6H PRN 3 Days #10 tab 11/07/22 Docusate [Colace] 100 mg PO BID #60 capsule 11/29/22 HYDROcodone/APAP 5-325MG [[place] 1 tab PO Q6HR PRN #12 tab 11/29/22 5-325] Allergies Allergy/AdvReac Type Severity Reaction Status Date / Time latex Allergy Rash/Hives Verified 12/15/22 00:10 pollen extracts Allergy Dyspnea Verified 12/15/22 00:10 Review of Systems ROS Statement: Those systems with pertinent positive or pertinent negative responses have been documented in the HPI. ROS Other: All systems not noted in ROS Statement are negative. Past Medical History Past Medical History: Asthma, Diabetes Mellitus, GERD/Reflux, GI Bleed, Hyperlipidemia, Hypertension, Seizure Disorder Additional Past Medical History / Comment(s): Rectal bleed/hemorrhoids, VNS Device implanted L shoulder/Mally Larkin at [place] [facility] in [place] d/t seizures, epilepsy diagnosed 2 years ago (2020), last seizure 11/02/22, "borderline" diabetes, back pain, poor dentation. History of Any Multi-Drug Resistant Organisms: None Reported Past Surgical History: No Surgical Hx Reported Additional Past Surgical History / Comment(s): 09/2022 colonoscopy, VNS device implant L shoulder HEMORRHOID ECTOMY Past Anesthesia/Blood Transfusion Reactions: No Reported Reaction Additional Past Anesthesia/Blood Transfusion Reaction / Comment(s): Pt has never had blood transfusion. Past Psychological History: ADD/ADHD, Anxiety, Depression Smoking Status: Never smoker Past Alcohol Use History: None Reported Past Drug Use History: None Reported - Past Family History Mother Family Medical History: Skin Disorder Additional Family Medical History / Comment(s): Psoriasis General Exam Limitations: no limitations General appearance: alert, in no apparent distress Head exam: Present: atraumatic, normocephalic, normal inspection Eye exam: Present: normal appearance, EOMI. Absent: scleral icterus, periorbital swelling Neck exam: Present: normal inspection, full ROM Rectal exam: Present: normal inspection Neurological exam: Present: alert, oriented X3, CN II-XII intact Psychiatric exam: Present: normal affect, normal mood Skin exam: Present: warm, dry, intact, normal color. Absent: rash Course Vital Signs 12/15/22 00:06 Temperature 96.6 F L Pulse Rate 88 Respiratory 18 Rate Blood Pressure 132/84 O2 Sat by Pulse 97 Oximetry Medical Decision Making - Medical Decision Making Was pt. sent in by a medical professional or institution (, PA, TRUCK DRIVER HELPER, urgent care, hospital, or retirement...) When possible be specific @ -No Did you speak to anyone other than the patient for history (EMS, parent, family, police, friend...)? What history was obtained from this source @ -No Did you review nursing and triage notes (agree or disagree)? Why? @ -I reviewed and agree with nursing and triage notes Were old charts reviewed (outside hosp., previous admission, EMS record, old EKG, old radiological studies, urgent care reports/EKG's, retirement records)? Report findings @ -No old charts were reviewed Differential Diagnosis (chest pain, altered mental status, abdominal pain women, abdominal pain men, vaginal bleeding, weakness, fever, dyspnea, syncope, headache, dizziness, GI bleed, back pain, seizure, CVA, palpatations, mental health, musculoskeletal)? @ -Differential includes postoperative pain, fistula, abscess, this is not an all inclusive list EKG interpreted by me (3pts min.). @ -As above X-rays interpreted by me (1pt min.). @ -None done CT interpreted by me (1pt min.). @ -None done U/S interpreted by me (1pt. min.). @ -None done What testing was considered but not performed or refused? (CT, X-rays, U/S, labs)? Why? @ -None What meds were considered but not given or refused? Why? @ -None Did you discuss the management of the patient with other professionals (professionals i.e. Dr., PA, TRUCK DRIVER HELPER, lab, RT, psych nurse, social security assessor, military lawyer, teacher, armored vehicle officer, upper caser)? Give summary @ -No Was smoking cessation discussed for >3mins.? @ -No Was critical care preformed (if so, how long)? @ -No Were there social determinants of health that impacted care today? How? (Homelessness, low income, unemployed, alcoholism, drug addiction, transportation, low edu. Level, literacy, decrease access to med. care, group home, rehab)? @ -No Was there de-escalation of care discussed even if they declined (Discuss DNR or withdrawal of care, Hospice)? DNR status @ -No What co-morbidities impacted this encounter? (DM, HTN, Smoking, COPD, CAD, Cancer, CVA, ARF, Chemo, Hep., AIDS, mental health diagnosis, sleep apnea, mo rbid obesity)? @ -None Was patient admitted / discharged? Hospital course, mention meds given and route, prescriptions, significant lab abnormalities, going to OR and other pertinent info. @ -22-year-old male presenting with chief complaint of rectal pain and bleeding. He is status post hemorrhoidectomy performed on 11/07. On inspection there is no bleeding or discharge seen at this time. Patient admits to pain at this time. He is given Toradol. WBC 13.4 stable from previous values. Hemoglobin is stable at 13.8. Patient is educated on today's findings. He is instructed to follow-up with his surgeon in the office. Also instructed to continue sitz baths, fiber, stool softeners, and increased hydration. Follow-up with PCP. Report back to ER with any new or worsening symptoms. Discussed return parameters and answered all questions. Patient conveyed verbal understanding and agreed to the plan. I discussed this case in detail with my attending Dr. Chavis Undiagnosed new problem with uncertain prognosis? @ -No Drug Therapy requiring intensive monitoring for toxicity (Heparin, Nitro, Insulin, Cardizem)? @ -No Were any procedures done? @ -No Diagnosis/symptom? @ -Pain post hemorrhoidectomy Acute, or Chronic, or Acute on Chronic? @ -Acute Uncomplicated (without systemic symptoms) or Complicated (systemic symptoms)? @ -Uncomplicated Side effects of treatment? @ -No Exacerbation, Progression, or Severe Exacerbation? @ -No Poses a threat to life or bodily function? How? (Chest pain, [place], [place], pneumonia, PE, COPD, DKA, ARF, appy, cholecystitis, CVA, Diverticulitis, Homicidal, S uicidal, threat to staff... and all critical care pts) @ -No - Lab Data Result diagrams: 12/15/22 00:40 12/15/22 00:40 Lab Results 12/15/22 12/15/22 Range/Units 00:40 00:40 WBC 13.4 H (3.8-10.6) k/uL RBC 5.73 (4.30-5.90) m/uL Hgb 13.8 (13.0-17.5) gm/dL Hct 43.4 (39.0-53.0) % MCV 75.8 L (80.0-100.0) fL MCH 24.2 L (25.0-35.0) pg MCHC 31.9 (31.0-37.0) g/dL RDW 15.3 (11.5-15.5) % Plt Count 324 (150-450) k/uL MPV 7.4 Neutrophils % 65 % Lymphocytes % 22 % Monocytes % 6 % Eosinophils % 5 % Basophils % 0 % Neutrophils # 8.7 H (1.3-7.7) k/uL Lymphocytes # 3.0 (1.0-4.8) k/uL Monocytes # 0.8 (0-1.0) k/uL Eosinophils # 0.6 (0-0.7) k/uL Basophils # 0.1 (0-0.2) k/uL Microcytosis Slight Sodium 140 (137-145) mmol/L Potassium 4.3 (3.5-5.1) mmol/L Chloride 104 (98-107) mmol/L Carbon Dioxide 21 L (22-30) mmol/L Anion Gap 15 mmol/L BUN 22 H (9-20) mg/dL Creatinine 0.79 (0.66-1.25) mg/dL Est GFR (CKD-EPI)AfAm >90 (>60 ml/min/1.73 sqM) Est GFR (CKD-EPI)NonAf >90 (>60 ml/min/1.73 sqM) Glucose 125 H (74-99) mg/dL Calcium 9.8 (8.4-10.2) mg/dL Total Bilirubin 0.5 (0.2-1.3) mg/dL AST 37 (17-59) U/L ALT 57 H (4-49) U/L Alkaline Phosphatase 56 (38-126) U/L Total Protein 7.4 (6.3-8.2) g/dL Albumin 4.5 (3.5-5.0) g/dL Disposition Clinical Impression: Status post hemorrhoidectomy Disposition: HOME SELF-CARE Condition: Good Instructions (If sedation given, give patient instructions): Hemorrhoids (ED) Additional Instructions: Follow-up with your surgeon in the office. Report back to ER with any new or worsening symptoms. Continue with sitz baths, fiber supplements, stool softeners, and increased hydration. Is patient prescribed a controlled substance at d/c from ED?: No Referrals: Corry Gaspar MD [Primary Care Provider] - 1-2 days Time of Disposition: 01:29
== END 2022-12-15 01:20 | disposition home or self-care (01) ==
LOC: EC 00:04
DX: Z48.815 Encounter for surgical aftercare following surgery on the digestive system (principal); J45.909 Unspecified asthma, uncomplicated; E11.9 Type 2 diabetes mellitus without complications; E78.5 Hyperlipidemia, unspecified; K21.9 Gastro-esophageal reflux disease without esophagitis; I10 Essential (primary) hypertension; F90.9 Attention-deficit hyperactivity disorder, unspecified type; F41.9 Anxiety disorder, unspecified; F32.A Depression, unspecified; Z79.84 Long term (current) use of oral hypoglycemic drugs; Z79.899 Other long term (current) drug therapy; Z91.040 Latex allergy status; Z91.018 Allergy to other foods
CPT/HCPCS: 36415; 80053; 85025; 99285; 96374; J1885

== ENCOUNTER → 2023-08-13 | Outpatient (CLI) | payer OTHER ==
--- NOTE | 2023-08-13 09:17 | US ---
EXAMINATION TYPE: US abdomen complete DATE OF EXAM: 08/13/2023 COMPARISON: NONE CLINICAL INDICATION: Male, 23 years old with history of R94.5 ABNORMAL RESULTS OF LIVER FUNCTION STUD IES; TECHNIQUE: Multiple sonographic images of the abdomen are obtained. FINDINGS: EXAM MEASUREMENTS: Liver Length: 21.8 cm Gallbladder Wall: 0.2 cm CBD: not seen Spleen: 18.5 cm Right Kidney: 10.5 x 5.6 x 5.8 cm Left Kidney: 12.0 x 4.9 x 5.6 cm Difficult and limited study due to patient body habitus Pancreas: obscured by overlying midline bowel gas Liver: limited visualization, increased echogenicity, increased attenuation, decreased visualization of vessels suggestive of fatty infiltrate Gallbladder: wnl Evidence for sonographic Marin's sign: no CBD: obscured by overlying bowel gas Spleen: enlarged Right Kidney: wnl Left Kidney: wnl Upper IVC: wnl Abd Aorta: obscured by overlying midline bowel gas The liver is homogenous with increased echotexture and without dilated ducts, solid mass or cystic st ructure.. The intrahepatic portion of the IVC and proximal abdominal aorta are within normal limits. There is no evidence of cholelithiasis. Common bile duct is unremarkable. The visualized portions of the pancreas are homogenous. The spleen is unremarkable. Kidneys are symmetric and free of hydr onephrosis. No renal lesions are seen. IMPRESSION: 1. No evidence for acute process. 2. Hepatic steatosis.
== END | disposition home or self-care (01) ==
LOC: RADUSWWP 08:19
PROVIDERS: ATTEND Internal Medicine
DX: K76.0 Fatty (change of) liver, not elsewhere classified (principal); R94.5 Abnormal results of liver function studies
CPT/HCPCS: 76700

== ENCOUNTER → 2023-11-21 | Outpatient (CLI) | payer OTHER ==
[2023-11-21 13:52] LABS: African American GFR (CKD) >90 (>60 ml/min/1.73 sqM); Blood Urea Nitrogen 14 mg/dL (9-20); Non-African American GFR(CKD) >90 (>60 ml/min/1.73 sqM)
--- NOTE | 2023-11-21 14:57 | CT ---
EXAMINATION TYPE: CT abdomen pelvis w con DATE OF EXAM: 11/21/2023 COMPARISON: None HISTORY: LUQ pain CT DLP: 2891 mGycm CONTRAST: CT scan of the abdomen and pelvis is performed with Oral Contrast and with IV Contrast, patient injec ernesto with 100 mL of Isovue 300. FINDINGS: LUNG BASES-: No visible nodule. No infiltrate. LIVER/GB: No calcified gallstones. Hepatic steatosis with borderline hepatomegaly. No space occupy ing hepatic lesion. Biliary tree is of normal caliber. PANCREAS: No inflammation. No distinct mass. SPLEEN: Splenomegaly measuring 16.3 cm craniocaudal dimension. No lesion seen. ADRENALS: No nodule. No thickening. KIDNEYS/BLADDER: No hydronephrosis. No nephrolithiasis. No distinct renal mass. Urinary bladder g rossly unremarkable. BOWEL: Normal appendix. Normal bowel caliber. No inflammation. GENITAL ORGANS: No gross abnormality. LYMPH NODES: No greater than 1cm abdominal or pelvic lymph nodes are appreciated. AORTA: No significant abnormality. OSSEOUS STRUCTURES: No significant abnormality is seen. OTHER: No significant additional abnormality is seen. IMPRESSION: 1. Splenomegaly. 2. Hepatic steatosis with borderline hepatic enlargement.
== END | disposition home or self-care (01) ==
LOC: RADCTMAIN 12:35
PROVIDERS: ATTEND Internal Medicine Gastroenterology
DX: K76.0 Fatty (change of) liver, not elsewhere classified (principal); R16.2 Hepatomegaly with splenomegaly, not elsewhere classified
CPT/HCPCS: 82565; 84520; 74177; 36415; Q9967

== ENCOUNTER 2024-07-13 16:48 | Emergency (ER) | payer OTHER ==
[2024-07-13 17:03] VITALS: TEMP 98.3
--- NOTE | 2024-07-13 17:17 | ED ---
General Adult HPI - General Chief complaint: Abdominal Pain Stated complaint: Swollen abd, numbness Time Seen by Provider: 07/13/24 17:04 Source: patient, RN notes reviewed Mode of arrival: ambulatory Limitations: no limitations - History of Present Illness Initial comments: This is a 24-year-old male with a history of diabetes, hypertension, hyperlipidemia presenting to emergency room for chief complaint of numbness to his left upper quadrant of his abdomen. Patient states that this pain started at 12:00 PM yesterday while he was laying in bed. Patient states it feels like this prior his abdomen is "asleep "he denies pain of the abdomen and reports that he is able to feel pressure and temperature changes. He denies nausea, vomiting, fevers, chills, constipation, diarrhea urinary changes. Denies previous surgical abdominal history. - Related Data Home Medications Medication Instructions Recorded Confirmed Ergocalciferol [Vitamin D2 50,000 unit PO TENA 12/09/18 11/07/22 (DRISDOL)] Loratadine [Claritin] 10 mg PO QAM 12/09/18 11/07/22 Montelukast [Singulair] 10 mg PO 12/09/18 11/07/22 Sertraline [Zoloft] 200 mg PO QAM 12/09/18 11/07/22 cloNIDine HCL [Catapres] 0.1 mg PO 12/09/18 11/07/22 ARIPiprazole [Abilify] 5 mg PO QAM 03/09/19 11/07/22 Albuterol Inhaler [Ventolin Hfa 1 - 2 puff INHALATION RT-Q6H PRN 03/09/19 11/07/22 Inhaler] Triamcinolone Acetonide [Nasacort] 1 spray EA NOSTRIL 03/09/19 11/07/22 Acetaminophen Tab [Tylenol] 500 mg PO Q6HR PRN 09/26/22 11/07/22 Cyanocobalamin (Vitamin B-12) 1,000 mg PO QAM 09/26/22 11/07/22 [Vitamin B-12] Empagliflozin [Jardiance] 10 mg PO HS 09/26/22 11/07/22 Lacosamide [Vimpat] 100 mg PO BID 09/26/22 11/07/22 Omeprazole [PriLOSEC] 20 mg PO QAM 09/26/22 11/07/22 Rosuvastatin [Crestor] 5 mg PO HS 09/26/22 11/07/22 hydrOXYzine HCL 10 mg PO ONCE PRN 09/26/22 11/07/22 lisinopriL [Zestril] 5 mg PO QAM 09/26/22 11/07/22 Previous Rx's Medication Instructions Recorded Hydrocortisone [Anusol-Hc] 1 applic RECTAL BID #30 gm 07/09/22 Acetaminophen Tab [Tylenol] 650 mg PO Q6H #30 tab 11/07/22 Docusate [Colace] 100 mg PO BID #20 capsule 11/07/22 Ibuprofen [Motrin] 600 mg PO Q6HR PRN #40 tab 11/07/22 oxyCODONE HCL [OxyIR] 5 mg PO Q6H PRN 3 Days #10 tab 11/07/22 Docusate [Colace] 100 mg PO BID #60 capsule 11/29/22 HYDROcodone/APAP 5-325MG [[place] 1 tab PO Q6HR PRN #12 tab 11/29/22 5-325] Allergies Allergy/AdvReac Type Severity Reaction Status Date / Time latex Allergy Rash/Hives Verified 07/13/24 17:03 pollen extracts Allergy Dyspnea Verified 07/13/24 17:03 Review of Systems ROS Statement: Those systems with pertinent positive or pertinent negative responses have been documented in the HPI. ROS Other: All systems not noted in ROS Statement are negative. Past Medical History Past Medical History: Asthma, Diabetes Mellitus, GERD/Reflux, GI Bleed, Hyperlipidemia, Hypertension, Seizure Disorder Additional Past Medical History / Comment(s): Rectal bleed/hemorrhoids, VNS Device implanted L shoulder/Mally Larkin at [place] [facility] in [place] d/t seizures, epilepsy diagnosed 2 years ago (2020), last seizure 11/02/22, "borderline" diabetes, back pain, poor dentation. History of Any Multi-Drug Resistant Organisms: None Reported Past Surgical History: No Surgical Hx Reported Additional Past Surgical History / Comment(s): 09/2022 colonoscopy, VNS device implant L shoulder HEMORRHOID ECTOMY Past Anesthesia/Blood Transfusion Reactions: No Reported Reaction Additional Past Anesthesia/Blood Transfusion Reaction / Comment(s): Pt has never had blood transfusion. Past Psychological History: ADD/ADHD, Anxiety, Depression Smoking Status: Never smoker Past Alcohol Use History: None Reported Past Drug Use History: None Reported - Past Family History Mother Family Medical History: Skin Disorder Additional Family Medical History / Comment(s): Psoriasis General Exam Limitations: no limitations General appearance: alert, in no apparent distress, obese Neck exam: Present: normal inspection. Absent: tenderness, meningismus, lymphadenopathy Respiratory exam: Present: normal lung sounds bilaterally. Absent: respiratory distress, wheezes, rales, rhonchi, stridor Cardiovascular Exam: Present: regular rate, normal rhythm, normal heart sounds. Absent: systolic murmur, diastolic murmur, rubs, gallop, clicks GI/Abdominal exam: Present: soft, normal bowel sounds. Absent: distended, tenderness, guarding, rebound, rigid, mass, pulsatile mass, hernia Extremities exam: Present: normal inspection, full ROM, normal capillary refill. Absent: tenderness, pedal edema, joint swelling, calf tenderness Back exam: Present: normal inspection Skin exam: Present: warm, dry, intact, normal color. Absent: rash Course Vital Signs 07/13/24 07/13/24 17:01 19:28 Temperature 98.3 F Pulse Rate 88 81 Respiratory 16 18 Rate Blood Pressure 150/94 137/84 O2 Sat by Pulse 96 96 Oximetry Medical Decision Making - Medical Decision Making Was pt. sent in by a medical professional or institution (SACHIN Rogers, CONSTRUCTION CARPENTER, urgent care, hospital, or [facility]...) When possible be specific @ -No Did you speak to anyone other than the patient for history (EMS, parent, family, police, friend...)? What history was obtained from this source @ -No Did you review nursing and triage notes (agree or disagree)? Why? @ -I reviewed and agree with nursing and triage notes Were old charts reviewed (outside hosp., previous admission, EMS record, old EKG, old radiological studies, urgent care reports/EKG's, [facility] records)? Report findings @ -No old charts were reviewed Differential Diagnosis (chest pain, altered mental status, abdominal pain women, abdominal pain men, vaginal bleeding, weakness, fever, dyspnea, syncope, headache, dizziness, GI bleed, back pain, seizure, CVA, palpatations, mental health, musculoskeletal)? @ -Differential Abdominal Pain Men: Appendicitis, cholecystitis, diverticulosis, ischemic bowel, pancreatitis, hepatitis, UTI, gastroenteritis, AAA, incarcerated hernia, bowel obstruction, constipation, inflammatory bowel, hepatitis, peptic ulcer disease, splenic infarction, perforated viscus, testicular torsion, this is not meant to be an all-inclusive list EKG interpreted by me (3pts min.). @ -none X-rays interpreted by me (1pt min.). @ -x-ray KUB revealed a nonspecific bowel gas pattern without evidence for acute process CT interpreted by me (1pt min.). @ -None done U/S interpreted by me (1pt. min.). @ -None done What testing was considered but not performed or refused? (CT, X-rays, U/S, labs)? Why? @ -None What meds were considered but not given or refused? Why? @ -None Did you discuss the management of the patient with other professionals (professionals i.e. , PA, CONSTRUCTION CARPENTER, lab, RT, psych nurse, nephrology social worker, senior planning manager, teacher, cash management officer, shoe parts caser)? Give summary @ -No Was smoking cessation discussed for >3mins.? @ -No Was critical care preformed (if so, how long)? @ -No Were there social determinants of health that impacted care today? How? (Homelessness, low income, unemployed, alcoholism, drug addiction, transportation, low edu. Level, literacy, decrease access to med. care, detention, rehab)? @ -No Was there de-escalation of care discussed even if they declined (Discuss DNR or withdrawal of care, Hospice)? DNR status @ -No What co-morbidities impacted this encounter? (DM, HTN, Smoking, COPD, CAD, Cancer, CVA, ARF, Chemo, Hep., AIDS, mental health diagnosis, sleep apnea, morbid obesity)? @ -None Was patient admitted / discharged? Hospital course, mention meds given and route, prescriptions, significant lab abnormalities, going to OR and other pertinent info. @ -Discharge. 24-year-old male presenting with paresthesias of the left upper quadrant. On examination there are no overlying skin changes, masses palpated, or edema. Abdominal examination reveals no tenderness to the area of concern. Patient response to pressure and temperature. X-ray of the abdomen no acute process. Patient's POC glucose is 209. Patient symptoms likely secondary to paresthesias of the abdominal wall. This minimal clinical concern for emergent intra-abdominal process at this time recommend patient follows up outpatient with primary care provider for further evaluation. All questions have been answered at bedside intact return parameters have been discussed with the patient he is verbalized understanding. Discussed with Dr. Andre Undiagnosed new problem with uncertain prognosis? @ -No Drug Therapy requiring intensive monitoring for toxicity (Heparin, Nitro, Insulin, Cardizem)? @ -No Were any procedures done? @ -No Diagnosis/symptom? @ -parasthesias of abdominal wall Acute, or Chronic, or Acute on Chronic? @ -acute Uncomplicated (without systemic symptoms) or Complicated (systemic symptoms)? @ -uncomplicated Side effects of treatment? @ -No Exacerbation, Progression, or Severe Exacerbation? @ -No Poses a threat to life or bodily function? How? (Chest pain, [place], [place], pneumonia, PE, COPD, DKA, ARF, appy, cholecystitis, CVA, Diverticulitis, Homicidal, Suicidal, threat to staff... and all critical care pts) @ -No - Lab Data Lab Results 07/13/24 Range/Units 18:50 POC Glucose (mg/dL) 209 H (70-110) mg/dL POC Glu Occupational Therapy Aides Teacher ID Brain Berman Disposition Clinical Impression: Abdominal fullness in left upper quadrant, Paresthesia Disposition: HOME SELF-CARE Condition: Good Instructions (If sedation given, give patient instructions): Paresthesia (ED) Additional Instructions: Please return to the Emergency Department if symptoms worsen or any other concerns. Is patient prescribed a controlled substance at d/c from ED?: No Referrals: Corry Gaspar MD [Primary Care Provider] - 1-2 days Time of Disposition: 19:17
--- NOTE | 2024-07-13 18:01 | XR ---
EXAMINATION TYPE: XR KUB DATE OF EXAM: 07/13/2024 5:27 PM COMPARISON: Previous abdominal radiograph 11/28/2022. CLINICAL INDICATION: Male, 24 years old with history of ab pain; H TECHNIQUE: One radiographic view of the abdomen was obtained. FINDINGS: The bowel gas pattern is nonspecific without dilated loops of small or large bowel. . Fecal material and gas are demonstrated throughout the colon and rectum. There is no evidence for organomegaly or pneumoperitoneum. The osseous structures are intact. No ab normal calcifications are present. IMPRESSION: Nonspecific bowel gas pattern without radiographic evidence for acute process. [facility], , 07/13/2024 5:58 PM
[2024-07-13 18:52] LABS: Glucose,Whole Blood 209 mg/dL (70-110)
[2024-07-13 19:32] VITALS: BP 137/84; PULSE 81; RESP 18
== END 2024-07-13 19:28 | disposition home or self-care (01) ==
LOC: EC 16:48
DX: R10.12 Left upper quadrant pain (principal); R20.2 Paresthesia of skin; Z91.040 Latex allergy status; Z88.8 Allergy status to other drugs, medicaments and biological substances
CPT/HCPCS: 36415; 74018; 99284

== ENCOUNTER 2024-07-29 01:04 | Emergency (ER) | payer OTHER ==
--- NOTE | 2024-07-29 01:26 | ED ---
General Adult HPI - General Chief complaint: Upper Respiratory Infection Stated complaint: REJI, fever Time Seen by Provider: 07/29/24 01:13 Source: patient Mode of arrival: ambulatory Limitations: no limitations - History of Present Illness Initial comments: 24-year-old male presenting with chief complaint of cough and difficulty breathing. Patient states symptoms have been ongoing for the last day. Patient has history of asthma and has been taking his albuterol inhaler as needed. Patient does have a fever. He admits to diarrhea. No nausea or vomiting. Admits to ear pain, sinus pressure, sore throat, congestion. He has chest and abdominal soreness from coughing. - Related Data Home Medications Medication Instructions Recorded Confirmed Ergocalciferol [Vitamin D2 50,000 unit PO TENA 12/09/18 11/07/22 (DRISDOL)] Loratadine [Claritin] 10 mg PO QAM 12/09/18 11/07/22 Montelukast [Singulair] 10 mg PO HS 12/09/18 11/07/22 Sertraline [Zoloft] 200 mg PO QAM 12/09/18 11/07/22 cloNIDine HCL [Catapres] 0.1 mg PO HS 12/09/18 11/07/22 ARIPiprazole [Abilify] 5 mg PO QAM 03/09/19 11/07/22 Albuterol Inhaler [Ventolin Hfa 1 - 2 puff INHALATION RT-Q6H PRN 03/09/19 11/07/22 Inhaler] Triamcinolone Acetonide [Nasacort] 1 spray EA NOSTRIL 03/09/19 11/07/22 Acetaminophen Tab [Tylenol] 500 mg PO Q6HR PRN 09/26/22 11/07/22 Cyanocobalamin (Vitamin B-12) 1,000 mg PO QAM 09/26/22 11/07/22 [Vitamin B-12] Empagliflozin [Jardiance] 10 mg PO HS 09/26/22 11/07/22 Lacosamide [Vimpat] 100 mg PO BID 09/26/22 11/07/22 Omeprazole [PriLOSEC] 20 mg PO QAM 09/26/22 11/07/22 Rosuvastatin [Crestor] 5 mg PO HS 03/21/23 05/02/23 hydrOXYzine HCL 10 mg PO ONCE PRN 09/26/22 11/07/22 lisinopriL [Zestril] 5 mg PO QAM 09/26/22 11/07/22 Previous Rx's Medication Instructions Recorded Hydrocortisone [Anusol-Hc] 1 applic RECTAL BID #30 gm 07/09/22 Acetaminophen Tab [Tylenol] 650 mg PO Q6H #30 tab 11/07/22 Docusate [Colace] 100 mg PO BID #20 capsule 11/07/22 Ibuprofen [Motrin] 600 mg PO Q6HR PRN #40 tab 11/07/22 oxyCODONE HCL [OxyIR] 5 mg PO Q6H PRN 3 Days #10 tab 11/07/22 Docusate [Colace] 100 mg PO BID #60 capsule 11/29/22 HYDROcodone/APAP 5-325MG [[place] 1 tab PO Q6HR PRN #12 tab 11/29/22 5-325] Albuterol Sulfate [Albuterol 1 puff PO Q4-6H PRN #8.5 gm 07/29/24 Sulfate Hfa] predniSONE [Deltasone] 60 mg PO DAILY 5 Days #15 tab 07/29/24 Allergies Allergy/AdvReac Type Severity Reaction Status Date / Time latex Allergy Rash/Hives Verified 07/29/24 01:09 pollen extracts Allergy Dyspnea Verified 07/29/24 01:09 Review of Systems ROS Statement: Those systems with pertinent positive or pertinent negative responses have been documented in the HPI. ROS Other: All systems not noted in ROS Statement are negative. Past Medical History Past Medical History: Asthma, Diabetes Mellitus, GERD/Reflux, GI Bleed, Hyperlipidemia, Hypertension, Seizure Disorder Additional Past Medical History / Comment(s): Rectal bleed/hemorrhoids, VNS Device implanted L shoulder/Mally Larkin at [facility] in [place] d/t seizures, epilepsy diagnosed 2 years ago (2020), last seizure 11/02/22, "borderline" diabetes, back pain, poor dentation. History of Any Multi-Drug Resistant Organisms: None Reported Past Surgical History: No Surgical Hx Reported Additional Past Surgical History / Comment(s): 09/2022 colonoscopy, VNS device implant L shoulder HEMORRHOID ECTOMY Past Anesthesia/Blood Transfusion Reactions: No Reported Reaction Additional Past Anesthesia/Blood Transfusion Reaction / Comment(s): Pt has never had blood transfusion. Past Psychological History: ADD/ADHD, Anxiety, Depression Smoking Status: Never smoker Past Alcohol Use History: None Reported Past Drug Use History: None Reported - Past Family History Mother Family Medical History: Skin Disorder Additional Family Medical History / Comment(s): Psoriasis General Exam Limitations: no limitations General appearance: alert, in no apparent distress Head exam: Present: atraumatic, normocephalic, normal inspection Eye exam: Present: normal appearance, EOMI. Absent: periorbital swelling ENT exam: Present: normal exam, normal oropharynx, mucous membranes moist Neck exam: Present: normal inspection. Absent: meningismus Respiratory exam: Present: wheezes. Absent: respiratory distress, rales, rhonchi, stridor Cardiovascular Exam: Present: normal rhythm, tachycardia, normal heart sounds. Absent: systolic murmur, diastolic murmur, rubs, gallop, clicks Neurological exam: Present: alert, oriented X3 Psychiatric exam: Present: normal affect, normal mood Skin exam: Present: warm, dry, normal color Course Vital Signs 07/29/24 07/29/24 07/29/24 01:07 02:33 02:43 Temperature 100.1 F H Pulse Rate 120 H 112 H 111 H Respiratory 18 Rate Blood Pressure 145/72 O2 Sat by Pulse 96 Oximetry 07/29/24 03:06 Temperature 99.1 F Pulse Rate Respiratory Rate Blood Pressure O2 Sat by Pulse Oximetry Medical Decision Making - Medical Decision Making Was pt. sent in by a medical professional or institution (, PA, MEDICAL COORDINATOR PESTICIDE USE, urgent care, hospital, or halfway...) When possible be specific @ -No Did you speak to anyone other than the patient for history (EMS, parent, family, police, friend...)? What history was obtained from this source @ -No Did you review nursing and triage notes (agree or disagree)? Why? @ -I reviewed and agree with nursing and triage notes Were old charts reviewed (outside hosp., previous admission, EMS record, old EKG, old radiological studies, urgent care reports/EKG's, halfway records)? Report findings @ -No old charts were reviewed Differential Diagnosis (chest pain, altered mental status, abdominal pain women, abdominal pain men, vaginal bleeding, weakness, fever, dyspnea, syncope, headache, dizziness, GI bleed, back pain, seizure, CVA, palpatations, mental health, musculoskeletal)? @ -Differential includes COVID, influenza, RSV, group A strep, pneumonia, bronchitis, not an all-inclusive list EKG interpreted by me (3pts min.). @ -As above X-rays interpreted by me (1pt min.). @ -Chest x-ray shows no acute process CT interpreted by me (1pt min.). @ -None done U/S interpreted by me (1pt. min.). @ -None done What testing was considered but not performed or refused? (CT, X-rays, U/S, labs)? Why? @ -None What meds were considered but not given or refused? Why? @ -None Did you discuss the management of the patient with other professionals (professionals i.e. , PA, MEDICAL COORDINATOR PESTICIDE USE, lab, RT, psych nurse, administrator social welfare, insurance sales assistant, teacher, court security officer, rn case management)? Give summary @ -No Was smoking cessation discussed for >3mins.? @ -No Was critical care preformed (if so, how long)? @ -No Were there social determinants of health that impacted care today? How? (Homelessness, low income, unemployed, alcoholism, drug addiction, transportation, low edu. Level, literacy, decrease access to med. care, [facility], rehab)? @ -No Was there de-escalation of care discussed even if they declined (Discuss DNR or withdrawal of care, Hospice)? DNR status @ -No What co-morbidities impacted this encounter? (DM, HTN, Smoking, COPD, CAD, Cancer, CVA, ARF, Chemo, Hep., AIDS, mental health diagnosis, sleep apnea, morbid obesity)? @ -None Was patient admitted / discharged? Hospital course, mention meds given and route, prescriptions, significant lab abnormalities, going to OR and other pertinent info. @ -24-year-old male presenting with chief complaint of cough and shortness of breath. He is febrile upon arrival. Wheezes are heard on auscultation. Patient is treated with Motrin, Tylenol, Solu-Medrol, DuoNeb. Chest x-ray shows no acute process. Patient is positive for COVID. Negative for group A strep. On reassessment his breath sounds have improved and patient reports that he is feeling much better. His temperature has come down. He is educated on today's findings and supportive management at home. Given his history of asthma we will treat him for an asthma exacerbation with 5 days of prednisone and refill of his albuterol inhaler for home. Follow-up with PCP. Report back to ER with any new or worsening symptoms. Discussed return parameters and answered all questions. Patient conveyed verbal understanding and agreed to the plan. I discussed this case in detail with my attending . Undiagnosed new problem with uncertain prognosis? @ -No Drug Therapy requiring intensive monitoring for toxicity (Heparin, Nitro, Insulin, Cardizem)? @ -No Were any procedures done? @ -No Diagnosis/symptom? @ -COVID Acute, or Chronic, or Acute on Chronic? @ -Acute Uncomplicated (without systemic symptoms) or Complicated (systemic symptoms)? @ -Complicated Side effects of treatment? @ -No Exacerbation, Progression, or Severe Exacerbation? @ -No Poses a threat to life or bodily function? How? (Chest pain, [place], [place], pneumonia, PE, COPD, DKA, ARF, appy, cholecystitis, CVA, Diverticulitis, Homicidal, Suicidal, threat to staff... and all critical care pts) @ -Seemingly low likelihood at this time - Lab Data Lab Results 07/29/24 07/29/24 Range/Units 01:58 01:58 Influenza Type A (PCR) Not Detected (Not Detectd) Influenza Type B (PCR) Not Detected (Not Detectd) RSV (PCR) Not Detected (Not Detectd) SARS-CoV-2 (PCR) Detected A (Not Detectd) Group A Strep (PCR) NOT DETECTED (Not Detectd) Disposition Clinical Impression: COVID-19 Disposition: HOME SELF-CARE Condition: Good Instructions (If sedation given, give patient instructions): COVID-19 (Coronavirus Disease 2019) (ED) Additional Instructions: Follow-up with PCP. Report back to ER with any new or worsening symptoms. Prescriptions: Albuterol Sulfate [Albuterol Sulfate Hfa] 1 puff PO Q4-6H PRN #8.5 gm PRN Reason: Shortness Of Breath predniSONE [Deltasone] 60 mg PO DAILY 5 Days #15 tab Is patient prescribed a controlled substance at d/c from ED?: No Referrals: Corry Gaspar MD [Primary Care Provider] - 1-2 days Time of Disposition: 03:23
[2024-07-29] MEDS: IBUPROFEN 600 MG TAB PO STA (01:53)
[2024-07-29] MEDS: ACETAMINOPHEN TAB 325 MG TAB PO STA (01:54)
[2024-07-29] MEDS: methylPREDNISolone SOD SUCCI 125 MG/2 ML VIAL IM ONE (01:55)
--- NOTE | 2024-07-29 02:02 | XR ---
EXAM: XR Chest, 2 Views CLINICAL HISTORY: cough, fever TECHNIQUE: Frontal and lateral views of the chest. COMPARISON: 07/09/22 FINDINGS: Lungs: Unremarkable. No consolidation. Pleural space: Unremarkable. Mediastinum: Unremarkable. Normal mediastinal contour. Bones/joints: No acute findings. Tubes, lines and devices: Battery pack of neurostimulator over left mid chest is again noted. IMPRESSION: No acute findings in the chest.
[2024-07-29] MEDS: IPRATROPIUM-ALBUTEROL 3 ML NEB INHALATION STA (02:33)
[2024-07-29 03:06] VITALS: TEMP 99.1
[2024-07-29 03:15] LABS: Influenza A Not Detected (Not Detectd); Influenza B Not Detected (Not Detectd); RSV Not Detected (Not Detectd)
[2024-07-29 03:20] VITALS: BP 142/78; PULSE 110; RESP 22
== END 2024-07-29 03:25 | disposition home or self-care (01) ==
LOC: EC 01:04
DX: U07.1 COVID-19 (principal); Z91.040 Latex allergy status; Z91.048 Other nonmedicinal substance allergy status
CPT/HCPCS: 94640; 87651; 87636; 71046; 99285; 96372; J2919

== ENCOUNTER 2024-08-02 00:09 | Observation (INO) | payer OTHER ==
[2024-08-02 01:26] LABS: Basophils # (A) 0.1 k/uL (0-0.2); Basophils % (A) 1 %; Eosinophils # (A) 0.2 k/uL (0-0.7); Eosinophils % (A) 2 %; HCT 44.5 % (39.0-53.0); HGB 14.6 gm/dL (13.0-17.5); Lymphocytes # (A) 2.6 k/uL (1.0-4.8); Lymphocytes % (A) 24 %; MCH 25.1 pg (25.0-35.0); MCHC 32.9 g/dL (31.0-37.0); MCV 76.4 fL (80.0-100.0); Mean Platelet Volume 7.6; Monocytes # (A) 0.5 k/uL (0-1.0); Monocytes % (A) 5 %; Neutrophils # (A) 7.7 k/uL (1.3-7.7); Neutrophils % (A) 69 %; Platelet Count 390 k/uL (150-450); RBC 5.82 m/uL (4.30-5.90); RDW 14.1 % (11.5-15.5); WBC 11.2 k/uL (3.8-10.6)
[2024-08-02 01:33] LABS: ALT 99 U/L (4-49); AST 106 U/L (17-59); African American GFR (CKD) >90 (>60 ml/min/1.73 sqM); Alkaline Phosphatase 70 U/L (38-126); Anion Gap 13 mmol/L; Blood Urea Nitrogen 23 mg/dL (9-20); Calcium 9.5 mg/dL (8.4-10.2); Carbon Dioxide 26 mmol/L (22-30); Chloride 94 mmol/L (98-107); Glucose 446 mg/dL (74-99); Non-African American GFR(CKD) >90 (>60 ml/min/1.73 sqM); Potassium 4.6 mmol/L (3.5-5.1); Sodium 133 mmol/L (137-145); Total Bilirubin 0.9 mg/dL (0.2-1.3); Total Protein 6.8 g/dL (6.3-8.2)
[2024-08-02] MEDS: SODIUM CHLORIDE 0.9% 1,000 ML IV ONE (01:50)
[2024-08-02] MEDS: ALBUTEROL HFA INHALER INHALATION STA (01:56)
--- NOTE | 2024-08-02 02:07 | XR ---
EXAM: XR Chest, 2 Views CLINICAL HISTORY: ITS.REASON XR Reason: difficulty breathing TECHNIQUE: Frontal and lateral views of the chest. COMPARISON: 07/29/2024. FINDINGS: Lungs: Unremarkable. No consolidative changes or pleural effusions. Pleural space: See above. Heart: Heart is normal in size. No cardiomegaly. Mediastinum: Unremarkable. Normal mediastinal contour. Bones/joints: Osseous structures and soft tissues are unremarkable. No acute fracture. Tubes, lines and devices: Pacemaker overlies the left mid chest. IMPRESSION: No consolidative changes or pleural effusions.
[2024-08-02] MEDS: IPRATROPIUM-ALBUTEROL 3 ML NEB INHALATION SCH (03:11)
--- NOTE | 2024-08-02 03:31 | ED ---
SOB HPI - General Chief Complaint: Shortness of Breath Stated Complaint: Cough, pink eye Time Seen by Provider: 08/02/24 00:15 Source: patient Mode of arrival: ambulatory Limitations: no limitations - History of Present Illness Initial Comments: 24-year-old male with past medical history of diabetes, asthma presents to the emergency department reporting shortness of breath. Patient was diagnosed with COVID on the . States that he has had symptoms of shortness of breath since the . He was placed on prednisone which she has been taking but continues to be short of breath. He has been using his inhalers without any relief. Carlene ent presents today diffusely wheezy. Denies having any recent fevers. No chest pain. Patient is not insulin-dependent. Patient does not have access to a nebulizer. He denies any additional symptoms to include abdominal pain, nausea, vomiting. No other alleviating, precipitating modifying factors - Related Data Home Medications Medication Instructions Recorded Confirmed Ergocalciferol [Vitamin D2 50,000 unit PO TENA 12/09/18 11/07/22 (DRISDOL)] Loratadine [Claritin] 10 mg PO QAM 12/09/18 11/07/22 Montelukast [Singulair] 10 mg PO 12/09/18 11/07/22 Sertraline [Zoloft] 200 mg PO QAM 12/09/18 11/07/22 cloNIDine HCL [Catapres] 0.1 mg PO 12/09/18 11/07/22 ARIPiprazole [Abilify] 5 mg PO QAM 03/09/19 11/07/22 Albuterol Inhaler [Ventolin Hfa 1 - 2 puff INHALATION RT-Q6H PRN 03/09/19 11/07/22 Inhaler] Triamcinolone Acetonide [Nasacort] 1 spray EA NOSTRIL 03/09/19 11/07/22 Acetaminophen Tab [Tylenol] 500 mg PO Q6HR PRN 09/26/22 11/07/22 Cyanocobalamin (Vitamin B-12) 1,000 mg PO QAM 09/26/22 11/07/22 [Vitamin B-12] Empagliflozin [Jardiance] 10 mg PO HS 09/26/22 11/07/22 Lacosamide [Vimpat] 100 mg PO BID 09/26/22 11/07/22 Omeprazole [PriLOSEC] 20 mg PO QAM 09/26/22 11/07/22 Rosuvastatin [Crestor] 5 mg PO HS 09/26/22 11/07/22 hydrOXYzine HCL 10 mg PO ONCE PRN 09/26/22 11/07/22 lisinopriL [Zestril] 5 mg PO QAM 09/26/22 11/07/22 Previous Rx's Medication Instructions Recorded Hydrocortisone [Anusol-Hc] 1 applic RECTAL BID #30 gm 07/09/22 Acetaminophen Tab [Tylenol] 650 mg PO Q6H #30 tab 11/07/22 Docusate [Colace] 100 mg PO BID #20 capsule 11/07/22 Ibuprofen [Motrin] 600 mg PO Q6HR PRN #40 tab 11/07/22 oxyCODONE HCL [OxyIR] 5 mg PO Q6H PRN 3 Days #10 tab 11/07/22 Docusate [Colace] 100 mg PO BID #60 capsule 11/29/22 HYDROcodone/APAP 5-325MG [[place] 1 tab PO Q6HR PRN #12 tab 11/29/22 5-325] Albuterol Sulfate [Albuterol 1 puff PO Q4-6H PRN #8.5 gm 07/29/24 Sulfate Hfa] predniSONE [Deltasone] 60 mg PO DAILY 5 Days #15 tab 07/29/24 Allergies Allergy/AdvReac Type Severity Reaction Status Date / Time latex Allergy Rash/Hives Verified 08/02/24 00:21 pollen extracts Allergy Dyspnea Verified 08/02/24 00:21 Review of Systems ROS Statement: Those systems with pertinent positive or pertinent negative responses have been documented in the HPI. ROS Other: All systems not noted in ROS Statement are negative. Past Medical History Past Medical History: Asthma, Diabetes Mellitus, GERD/Reflux, GI Bleed, Hyperlipidemia, Hypertension, Seizure Disorder Additional Past Medical History / Comment(s): Rectal bleed/hemorrhoids, VNS Device implanted L [place]/Mally Larkin at [facility] in [place] d/t seizures, epilepsy diagnosed 2 years ago (2020), last seizure 11/02/22, "borderline" diabetes, back pain, poor dentation. History of Any Multi-Drug Resistant Organisms: None Reported Past Surgical History: No Surgical Hx Reported Additional Past Surgical History / Comment(s): 09/2022 colonoscopy, VNS device implant L shoulder HEMORRHOID ECTOMY Past Anesthesia/Blood Transfusion Reactions: No Reported Reaction Additional Past Anesthesia/Blood Transfusion Reaction / Comment(s): Pt has never had blood transfusion. Past Psychological History: ADD/ADHD, Anxiety, Depression Smoking Status: Never smoker Past Alcohol Use History: None Reported Past Drug Use History: None Reported - Past Family History Mother Family Medical History: Skin Disorder Additional Family Medical History / Comment(s): Psoriasis General Exam Limitations: no limitations Course Vital Signs 08/02/24 08/02/24 08/02/24 00:14 01:20 03:11 Temperature 98.4 F Pulse Rate 104 H 105 H 110 H Respiratory 26 H 24 Rate Blood Pressure 130/80 136/80 O2 Sat by Pulse 95 96 Oximetry 08/02/24 08/02/24 03:21 03:57 Temperature 98.4 F Pulse Rate 112 H 102 H Respiratory 19 Rate Blood Pressure 134/79 O2 Sat by Pulse 96 Oximetry Medical Decision Making - Medical Decision Making Was pt. sent in by a medical professional or institution (, PA, INSULATION MACHINE OPERATOR, urgent care, hospital, or longterm...) When possible be specific @ -[No] Did you speak to anyone other than the patient for history (EMS, parent, family, police, friend...)? What history was obtained from this source @ -[No] Did you review nursing and triage notes (agree or disagree)? Why? @ -[I reviewed and agree with nursing and triage notes] Were old charts reviewed (outside hosp., previous admission, EMS record, old EKG, old radiological studies, urgent care reports/EKG's, longterm records)? Report findings @ -[No old charts were reviewed] Differential Diagnosis (chest pain, altered mental status, abdominal pain women, abdominal pain men, vaginal bleeding, weakness, fever, dyspnea, syncope, headache, dizziness, GI bleed, back pain, seizure, CVA, palpatations, mental health, musculoskeletal)? @ -[not applicable] EKG interpreted by me (3pts min.). @ -Yes and demonstrates sinus tachycardia with a rate of 106. [place] interval 143. QRS 89. QTc of 369. No acute ST segment elevations or depressions X-rays interpreted by me (1pt min.). @ -[None done] CT interpreted by me (1pt min.). @ -[None done] U/S interpreted by me (1pt. min.). @ -[None done] What testing was considered but not performed or refused? (CT, X-rays, U/S, labs)? Why? @ -[None] What meds were considered but not given or refused? Why? @ -[None] Did you discuss the management of the patient with other professionals (professionals i.e. , PA, INSULATION MACHINE OPERATOR, lab, RT, psych nurse, social media editor, hydro mechanic, teacher, mobile patrol officer, residential case manager)? Give summary @ -[No] Was smoking cessation discussed for >3mins.? @ -[No] Was critical care preformed (if so, how long)? @ -[No] Were there social determinants of health that impacted care today? How? (Ho melessness, low income, unemployed, alcoholism, drug addiction, transportation, low edu. Level, literacy, decrease access to med. care, [facility], rehab)? @ -[No] Was there de-escalation of care discussed even if they declined (Discuss DNR or withdrawal of care, Hospice)? DNR status @ -[No] What co-morbidities impacted this encounter? (DM, HTN, Smoking, COPD, CAD, Cancer, CVA, ARF, Chemo, Hep., AIDS, mental health diagnosis, sleep apnea, morbid obesity)? @ -[None] Was patient admitted / discharged? Hospital course, mention meds given and route, prescriptions, significant lab abnormalities, going to OR and other pertinent info. @ -[hospital course] Undiagnosed new problem with uncertain prognosis? @ -[No] Drug Therapy requiring intensive monitoring for toxicity (Heparin, Nitro, Insulin, Cardizem)? @ -[No] Were any procedures done? @ -[No] Diagnosis/symptom? @ -[default] Acute, or Chronic, or Acute on Chronic? @ -[default] Uncomplicated (without systemic symptoms) or Complicated (systemic symptoms)? @ -[default] Side effects of treatment? @ -[No] Exacerbation, Progression, or Severe Exacerbation? @ -[No] Poses a threat to life or bodily function? How? (Chest pain, [place], [place], pneumonia, PE, COPD, DKA, ARF, appy, cholecystitis, CVA, Diverticulitis, Homicidal, Suicidal, threat to staff... and all critical care pts) @ -[No] - Lab Data Result diagrams: 08/02/24 01:01 08/02/24 01:01 Lab Results 08/02/24 08/02/24 Range/Units 01:01 01:01 WBC 11.2 H (3.8-10.6) k/uL RBC 5.82 (4.30-5.90) m/uL Hgb 14.6 (13.0-17.5) gm/dL Hct 44.5 (39.0-53.0) % MCV 76.4 L (80.0-100.0) fL MCH 25.1 (25.0-35.0) pg MCHC 32.9 (31.0-37.0) g/dL RDW 14.1 (11.5-15.5) % Plt Count 390 (150-450) k/uL MPV 7.6 Neutrophils % 69 % Lymphocytes % 24 % Monocytes % 5 % Eosinophils % 2 % Basophils % 1 % Neutrophils # 7.7 (1.3-7.7) k/uL Lymphocytes # 2.6 (1.0-4.8) k/uL Monocytes # 0.5 (0-1.0) k/uL Eosinophils # 0.2 (0-0.7) k/uL Basophils # 0.1 (0-0.2) k/uL Sodium 133 L (137-145) mmol/L Potassium 4.6 (3.5-5.1) mmol/L Chloride 94 L (98-107) mmol/L Carbon Dioxide 26 (22-30) mmol/L Anion Gap 13 mmol/L BUN 23 H (9-20) mg/dL Creatinine 0.70 (0.66-1.25) mg/dL Est GFR (CKD-EPI)AfAm >90 (>60 ml/min/1.73 sqM) Est GFR (CKD-EPI)NonAf >90 (>60 ml/min/1.73 sqM) Glucose 446 H (74-99) mg/dL Calcium 9.5 (8.4-10.2) mg/dL Total Bilirubin 0.9 (0.2-1.3) mg/dL AST 106 H (17-59) U/L ALT 99 H (4-49) U/L Alkaline Phosphatase 70 (38-126) U/L Total Protein 6.8 (6.3-8.2) g/dL Albumin 4.0 (3.5-5.0) g/dL Disposition Clinical Impression: COVID-19, Asthma exacerbation, Tachycardia Disposition: [facility] Condition: Stable Is patient prescribed a controlled substance at d/c from ED?: No Time of Disposition: 03:32 Decision to Admit Reason: Admit from EC Decision Date: 08/02/24 Decision Time: 03:32
[2024-08-02] MEDS ORDERED: NALOXONE 0.4 MG/ML 1 ML VIAL IV PRN (03:32)
[2024-08-02] MEDS ORDERED: ACETAMINOPHEN TAB 325 MG TAB PO PRN (03:32)
[2024-08-02] MEDS ORDERED: DEXTROSE 50% SYRINGE 50 ML IVP PRN ×4 (03:33→07:17)
[2024-08-02 03:51] LABS: Glucose,Whole Blood 352 mg/dL (70-110)
[2024-08-02] MEDS: methylPREDNISolone SOD SUCCI 125 MG/2 ML VIAL IV STA (03:51)
[2024-08-02] MEDS: SODIUM CHLORIDE 0.9% 1,000 ML IV SCH (03:56)
[2024-08-02 06:45] LABS: Glucose,Whole Blood 434 mg/dL (70-110)
[2024-08-02] MEDS: INSULIN ASPART (NovoLOG) 100 UNIT/ML VIAL SQ SCH (06:59)
[2024-08-02] MEDS: INSULIN ASPART (NovoLOG) 100 UNIT/ML VIAL SQ ONE ×2 (07:58→08:02)
[2024-08-02] MEDS ORDERED: methylPREDNISolone SOD SUCCI 40 MG/ML 1 ML VIAL IV SCH (08:00)
[2024-08-02] MEDS: ALBUTEROL HFA INHALER INHALATION SCH (08:20)
[2024-08-02] MEDS: SYMBICORT 160-4.5 MCG INHALER INHALATION SCH (08:20)
[2024-08-02] MEDS: INSULIN DETEMIR (LEVEMIR) 100 UNIT/ML SYR SQ SCH ×2 (08:26→20:57)
--- NOTE | 2024-08-02 11:14 | P.CNPUL ---
History of Present Illness Consult date: 08/02/24 Requesting physician: Jose M Ferrara Reason for consult: dyspnea, asthma Chief complaint: Shortness of breath History of present illness: This is a pleasant, morbidly obese 24-year-old male patient with a known history of mild intermittent chronic bronchial asthma, hypertension, hyperlipidemia, seizure disorder anxiety/depression, non-smoker. He presented here to the emergency room just after midnight today with complaints of increasing shortness of breath chest and wheezing. He had been here on the in the emergency department and was tested positive for COVID. He was discharged on steroids without much relief. He has only a rescue inhaler without much relief. Chest x-ray reveals no acute pulmonary process. White count 11.2. Hemoglobin 14.6. Platelets 390. Sodium 133. Potassium 4.6. Bicarb 26. BUN 23. Creatinine 0.7. Glucose 446. AST 106. ALT 99. He is seen today in consultation on the regular medical floor. He is currently sitting up in bed. Awake and alert in no acute distress. Maintaining good O2 saturations in the mid 90s on room air. He is afebrile. Hemodynamically stable. He is still bronchospastic and wheezing. Review of Systems REVIEW OF SYSTEMS: CONSTITUTIONAL: Denies any recent significant weight loss or weight gain. EYES: Denies change in vision. EARS, NOSE, MOUTH, THROAT: Denies headaches, denies sore throat. CARDIOVASCULAR: Denies chest pain, palpitations or syncopal episodes. RESPIRATORY: Positive for shortness of breath, no cough, congestion or hemoptysis. GASTROINTESTINAL: Denies change in appetite, denies abdominal pain GENITOURINARY: Denies hematuria, denies infections. MUSKULOSKELETAL: Denies pain, denies swelling. INTEGUMENTARY: Denies rash, denies eczema. NEUROLOGICAL: Denies recent memory loss, no recent seizure activity. PSYCHIATRIC: Denies anxiety, denies depression. HEMATOLOGIC/LYMPHATIC: Denies anemia, denies enlarged lymph nodes. Past Medical History Past Medical History: Asthma, Diabetes Mellitus, GERD/Reflux, GI Bleed, Hyperlipidemia, Hypertension, Seizure Disorder Additional Past Medical History / Comment(s): Rectal bleed/hemorrhoids, VNS Device implanted Steve manrique/Mally Larkin at [facility] in [place] d/t seizures, epilepsy diagnosed 2 years ago (2020), "borderline" diabetes, back pain, poor dentation. History of Any Multi-Drug Resistant Organisms: None Reported Past Surgical History: No Surgical Hx Reported Additional Past Surgical History / Comment(s): 09/2022 colonoscopy, VNS device implant L shoulder HEMORRHOID ECTOMY Past Anesthesia/Blood Transfusion Reactions: No Reported Reaction Additional Past Anesthesia/Blood Transfusion Reaction / Comment(s): Pt has never had blood transfusion. Past Psychological History: ADD/ADHD, Anxiety, Depression Additional Psychological History / Comment(s): Autism and Asperger's. Resides with his grandmother, Gail. Gail assists pt with his medications, drives pt. Smoking Status: Never smoker Past Alcohol Use History: None Reported Past Drug Use History: None Reported - Past Family History Mother Family Medical History: Skin Disorder Additional Family Medical History / Comment(s): Psoriasis Medications and Allergies Home Medications Medication Instructions Recorded Confirmed Type Ergocalciferol [Vitamin D2 50,000 unit PO TENA 12/09/18 11/07/22 History (DRISDOL)] Loratadine [Claritin] 10 mg PO [facility] 12/09/18 11/07/22 History Montelukast [Singulair] 10 mg PO 12/09/18 11/07/22 History Sertraline [Zoloft] 200 mg PO QA 12/09/18 11/07/22 History cloNIDine HCL [Catapres] 0.1 mg PO 12/09/18 11/07/22 History ARIPiprazole [Abilify] 5 mg PO QA 03/09/19 11/07/22 History Albuterol Inhaler [Ventolin Hfa 1 - 2 puff INHALATION RT-Q6H PRN 03/09/19 11/07/22 History Inhaler] Triamcinolone Acetonide [Nasacort] 1 spray EA NOSTRIL 03/09/19 11/07/22 History Hydrocortisone [Anusol-Hc] 1 applic RECTAL BID #30 gm 07/09/22 11/07/22 Rx Acetaminophen Tab [Tylenol] 500 mg PO Q6HR PRN 09/26/22 11/07/22 History Cyanocobalamin (Vitamin B-12) 1,000 mg PO QA 09/26/22 11/07/22 History [Vitamin B-12] Empagliflozin [Jardiance] 10 mg PO 09/26/22 11/07/22 History Lacosamide [Vimpat] 100 mg PO BID 09/26/22 11/07/22 History Omeprazole [PriLOSEC] 20 mg PO QAM 09/26/22 11/07/22 History Rosuvastatin [Crestor] 5 mg PO HS 09/26/22 11/07/22 History hydrOXYzine HCL 10 mg PO ONCE PRN 09/26/22 11/07/22 History lisinopriL [Zestril] 5 mg PO QAM 09/26/22 11/07/22 History Acetaminophen Tab [Tylenol] 650 mg PO Q6H #30 tab 11/07/22 Rx Docusate [Colace] 100 mg PO BID #20 capsule 11/07/22 Rx Ibuprofen [Motrin] 600 mg PO Q6HR PRN #40 tab 11/07/22 Rx oxyCODONE HCL [OxyIR] 5 mg PO Q6H PRN 3 Days #10 tab 11/07/22 Rx Docusate [Colace] 100 mg PO BID #60 capsule 11/29/22 Rx HYDROcodone/APAP 5-325MG [[place] 1 tab PO Q6HR PRN #12 tab 11/29/22 Rx 5-325] Albuterol Sulfate [Albuterol 1 puff PO Q4-6H PRN #8.5 gm 07/29/24 Rx Sulfate Hfa] predniSONE [Deltasone] 60 mg PO DAILY 5 Days #15 tab 07/29/24 Rx Allergies Allergy/AdvReac Type Severity Reaction Status Date / Time latex Allergy Rash/Hives Verified 08/02/24 00:21 pollen extracts Allergy Dyspnea Verified 08/02/24 00:21 Physical Exam Vitals: Vital Signs Temp Pulse Pulse Resp BP BP Pulse Ox 08/02/24 07:50 98.2 F 91 17 137/83 95 08/02/24 04:19 97.8 F 99 19 146/84 94 L 08/02/24 03:57 98.4 F 102 H 19 134/79 96 08/02/24 03:21 112 H 08/02/24 03:11 110 H 08/02/24 01:20 105 H 24 136/80 96 08/02/24 00:14 98.4 F 104 H 26 H 130/80 95 Intake and Output 0108/02/24 08/02/24 22:59 06:59 14:59 Other: Voiding Method Toilet # Voids 2 Weight 147.418 kg GENERAL EXAM: Alert, pleasant, morbidly obese 24-year-old male, on room air, fairly comfortable in no apparent distress. HEAD: Normocephalic. EYES: Normal reaction of pupils, equal size. NOSE: Clear with pink turbinates. THROAT: No erythema or exudates. NECK: No masses, no JVD. CHEST: No chest wall deformity. LUNGS: Equal air entry with bilateral expiratory wheezing. CVS: S1 and S2 normal with no audible murmur, regular rhythm. ABDOMEN: No hepatosplenomegaly, normal bowel sounds, no guarding or rigidity. SPINE: No scoliosis or deformity SKIN: No rashes CENTRAL NERVOUS SYSTEM: No focal deficits, tone is normal in all 4 extremities. EXTREMITIES: There is no peripheral edema. No clubbing, no cyanosis. Peripheral pulses are intact. Results - Laboratory Findings CBC and BMP: 08/02/24 01:01 08/02/24 01:01 Abnormal lab findings: Abnormal Labs 08/02/24 08/02/24 08/02/24 01:01 01:01 03:50 WBC 11.2 H MCV 76.4 L Sodium 133 L Chloride 94 L BUN 23 H Glucose 446 H POC Glucose (mg/dL) 352 H AST 106 H ALT 99 H 08/02/24 06:44 WBC MCV Sodium Chloride BUN Glucose POC Glucose (mg/dL) 434 H AST ALT - Diagnostic Findings Chest x-ray: image reviewed Assessment and Plan Assessment: Acute exacerbation of mild intermittent chronic bronchial asthma complicated by COVID-19 infection. Failed outpatient treatment COVID-19 infection on 07/29/2024 Morbid obesity with a BMI of 48.0 kg/m Hypertension Hyperlipidemia History of seizures Diabetes mellitus with hyperglycemia History of anxiety/depression Plan: The patient was seen and evaluated Chest x-ray, labs and medications reviewed Currently stable and on room air Initiate albuterol HFA 4 times daily Add Symbicort 2 puffs twice daily IV Solu-Medrol 60 mg every 6 hours Continue Singulair Levemir and NovoLog sliding scale Check a hemoglobin A1c Would benefit from a follow-up in our office post discharge Will need full pulmonary function testing and addition of maintenance inhalers We will continue to follow and make further recommendations based on his clinical status I have personally seen and examined the patient, performed the documentation and the assessment and plan as written. Number of minutes spent on the visit: 20 Dictation was produced using [employer] dictation software. Please excuse any grammatical, word or spelling errors.
[2024-08-02 12:01] LABS: Glucose,Whole Blood 541 mg/dL (70-110)
[2024-08-02 12:01] LABS: Glucose,Whole Blood 559 mg/dL (70-110)
[2024-08-02] MEDS: methylPREDNISolone SOD SUCCI 125 MG/2 ML VIAL IV SCH (13:05)
[2024-08-02] MEDS: INSULIN DETEMIR (LEVEMIR) 100 UNIT/ML SYR SQ STA (13:13)
[2024-08-02 13:15] LABS: Glucose,Whole Blood 524 mg/dL (70-110)
[2024-08-02] MEDS ORDERED: bisacodyL 5 MG TABLET.DR PO PRN (13:42)
--- NOTE | 2024-08-02 13:53 | P.HPIM ---
History of Present Illness H&P Date: 08/02/24 History of present illness: 24-year-old male patient with past medical history significant for asthma, hypertension, hyperlipidemia, seizure disorder, anxiety, depression, diabetes mellitus, history of fibroids who presented to ER with a complaint of increasing shortness of breath and wheezing. Patient recently tested positive for COVID on July 29, was discharged on steroids without much relief. Chest x-ray negative for acute process. WBCs 11.2, hemoglobin 14.6, platelet 390. BMP unremarkable. AST elevated 106, ALT 99. Blood sugars elevated more than 500. Patient denied any fever, chills, productive cough, chest pain, palpitation, nausea vomiting diarrhea constipation dysuria urgency frequency weakness or numbness of extremities. Assessment and plan: Acute asthma exacerbation: Mild intermittent chronic bronchial asthma COVID-19 infection 07/29/2024 Failed outpatient treatment Hypertension Hyperlipidemia Diabetes mellitus with hyperglycemia History of seizure History of anxiety/depression Vitals and labs and chest x-ray reviewed. Patient currently on room air, continue inhalers, albuterol, Symbicort Decrease Solu-Medrol to 40 mg daily given hyperglycemia Continue Levemir, increase dose to 20 mg twice daily, increase sliding scale, monitor blood sugars Pulmonary consulted and following. DVT prophylaxis s/c Heparin Monitor vital signs and labs Labs and medication were reviewed. Continue same treatment. Further recommendations as per clinical course of the patient PHYSICAL EXAMINATION: GENERAL: The patient is A&O x3, NAD HEENT: EOMI, Sclerae anicteric, Moist Mucous membranes Neck: Supple, Non tender, No JVD PULMONARY: Equal breath souds B/L, No wheezing, No crackles. CARDIOVASCULAR: S1, S2 present. No murmurs, rubs, or gallops. ABDOMEN: Soft, nontender, nondistended, normoactive bowel sounds. No guarding or rebound tenderness. MUSCULOSKELETAL: No edema, No cyanosis. No clubbing. Normal ROM. Intact peripheral pulses. NEUROLOGICAL: CN 2-12 grossly intact. No FND REVIEW OF SYSTEMS: CONSTITUTIONAL: No fever, no malaise, no fatigue. HEENT: No recent visual problems or hearing problems. Denied any sore throat. CARDIOVASCULAR: No chest pain, orthopnea, PND, no palpitations, no syncope. PULMONARY: No shortness of breath, no cough, no hemoptysis. GASTROINTESTINAL: No diarrhea, no nausea, no vomiting, no abdominal pain. NEUROLOGICAL: No headaches, no weakness, no numbness. HEMATOLOGICAL: Denies any bleeding or petechiae. GENITOURINARY: Denies any burning micturition, frequency, or urgency. MUSCULOSKELETAL/RHEUMATOLOGICAL: Denies any joint pain, swelling, or any muscle pain. ENDOCRINE: Denies any polyuria or polydipsia. The rest of the 14-point review of systems is negative. Dictation was produced using Son[employer] dictation software. please excuse any grammatical, word or spelling errors. Past Medical History Past Medical History: Asthma, Diabetes Mellitus, GERD/Reflux, GI Bleed, Hyperlipidemia, Hypertension, Seizure Disorder Additional Past Medical History / Comment(s): Rectal bleed/hemorrhoids, VNS Device implanted L shoulder/Mally Larkin at [facility] in [place] d/t seizures, epilepsy diagnosed 2 years ago (2020), "borderline" diabetes, back pain, poor dentation. History of Any Multi-Drug Resistant Organisms: None Reported Past Surgical History: No Surgical Hx Reported Additional Past Surgical History / Comment(s): 09/2022 colonoscopy, VNS device implant L shoulder HEMORRHOID ECTOMY Past Anesthesia/Blood Transfusion Reactions: No Reported Reaction Additional Past Anesthesia/Blood Transfusion Reaction / Comment(s): Pt has never had blood transfusion. Past Psychological History: ADD/ADHD, Anxiety, Depression Additional Psychological History / Comment(s): Autism and Asperger's. Resides with his grandmother, Gail. Gail assists pt with his medications, drives pt. Smoking Status: Never smoker Past Alcohol Use History: None Reported Past Drug Use History: None Reported - Past Family History Mother Family Medical History: Skin Disorder Additional Family Medical History / Comment(s): Psoriasis Medications and Allergies Home Medications Medication Instructions Recorded Confirmed Type Loratadine [Claritin] 10 mg PO DAILY 12/09/18 08/02/24 History Montelukast [Singulair] 10 mg PO HS 12/09/18 08/02/24 History Sertraline [Zoloft] 200 mg PO DAILY 12/09/18 08/02/24 History Albuterol Inhaler [Ventolin Hfa 2 puff INHALATION RT-QID PRN 03/09/19 08/02/24 History Inhaler] Omeprazole [PriLOSEC] 20 mg PO DAILY 09/26/22 08/02/24 History Rosuvastatin [Crestor] 5 mg PO HS 09/26/22 08/02/24 History lisinopriL [Zestril] 5 mg PO DAILY 09/26/22 08/02/24 History predniSONE [Deltasone] 60 mg PO DAILY 5 Days #15 tab 07/29/24 08/02/24 Rx ARIPiprazole [Abilify] 15 mg PO DAILY 08/02/24 08/02/24 History Budesonide/Formoterol Fumarate 2 puff INHALATION RT-BID 08/02/24 08/02/24 History [Symbicort 160-4.5 Mcg Inhaler] Empagliflozin [Jardiance] 25 mg PO HS 08/02/24 08/02/24 History Lacosamide 150 mg PO HS 08/02/24 08/02/24 History Allergies Allergy/AdvReac Type Severity Reaction Status Date / Time latex Allergy Rash/Hives Verified 08/02/24 12:50 pollen extracts Allergy Dyspnea Verified 08/02/24 12:50 Physical Exam Vitals: Vital Signs Temp Pulse Pulse Resp BP BP BP 08/02/24 12:25 98 18 108/66 08/02/24 07:50 98.2 F 91 17 137/83 08/02/24 04:19 97.8 F 99 19 146/84 08/02/24 03:57 98.4 F 102 H 19 134/79 08/02/24 03:21 112 H 08/02/24 03:11 110 H 08/02/24 01:20 105 H 24 136/80 08/02/24 00:14 98.4 F 104 H 26 H 130/80 Pulse Ox 08/02/24 12:25 96 08/02/24 07:50 95 08/02/24 04:19 94 L 08/02/24 03:57 96 08/02/24 03:21 08/02/24 03:11 08/02/24 01:20 96 08/02/24 00:14 95 Intake and Output 08/01/24 08/02/24 08/02/24 22:59 06:59 14:59 Intake Total 2360 Balance 2360 Intake: Oral 2360 Other: Voiding Method Toilet # Voids 2 Weight 147.418 kg Results CBC & Chem 7: 08/02/24 01:01 08/02/24 01:01 Labs: Abnormal Lab Results - Last 24 Hours (Table) 08/02/24 08/02/24 08/02/24 Range/Units 01:01 01:01 01:01 WBC 11.2 H (3.8-10.6) k/uL MCV 76.4 L (80.0-100.0) fL Sodium 133 L (137-145) mmol/L Chloride 94 L (98-107) mmol/L BUN 23 H (9-20) mg/dL Glucose 446 H (74-99) mg/dL POC Glucose (mg/dL) (70-110) mg/dL Hemoglobin A1c 10.6 H (<=6.0) % AST 106 H (17-59) U/L ALT 99 H (4-49) U/L 08/02/24 08/02/24 08/02/24 Range/Units 03:50 06:44 11:58 WBC (3.8-10.6) k/uL MCV (80.0-100.0) fL Sodium (137-145) mmol/L Chloride (98-107) mmol/L BUN (9-20) mg/dL Glucose (74-99) mg/dL POC Glucose (mg/dL) 352 H 434 H 541 H* (70-110) mg/dL Hemoglobin A1c (<=6.0) % AST (17-59) U/L ALT (4-49) U/L 08/02/24 08/02/24 Range/Units 12:00 13:13 WBC (3.8-10.6) k/uL MCV (80.0-100.0) fL Sodium (137-145) mmol/L Chloride (98-107) mmol/L BUN (9-20) mg/dL Glucose (74-99) mg/dL POC Glucose (mg/dL) 559 H* 524 H* (70-110) mg/dL Hemoglobin A1c (<=6.0) % AST (17-59) U/L ALT (4-49) U/L Thrombosis Risk Factor Assmnt - Choose All That Apply Any of the Below Risk Factors Present?: Yes Each Factor Represents 1 point: Obesity (BMI >25) Other Risk Factors: No Other congenital or acquired thrombophilia - If yes, enter type in comment: No Thrombosis Risk Factor Assessment Total Risk Factor Score: 1 Thrombosis Risk Factor Assessment Level: Low Risk
[2024-08-02 15:43] LABS: Glucose,Whole Blood 442 mg/dL (70-110)
[2024-08-02] MEDS: LORATADINE 10 MG TAB PO SCH (15:49)
[2024-08-02] MEDS: lisinopriL 5 MG TAB PO SCH (15:49)
[2024-08-02] MEDS: SERTRALINE 100 MG TAB PO SCH (15:49)
[2024-08-02] MEDS: ARIPiprazole 15 MG TAB PO SCH (15:49)
[2024-08-02 17:16] LABS: Glucose,Whole Blood 389 mg/dL (70-110)
[2024-08-02 20:42] LABS: Glucose,Whole Blood 382 mg/dL (70-110)
[2024-08-02] MEDS: ATORVASTATIN 10 MG TAB PO SCH (20:56)
[2024-08-02] MEDS: LACOSAMIDE 150 MG TABLET PO SCH (20:56)
[2024-08-02] MEDS: MONTELUKAST 10 MG TAB PO SCH (20:56)
[2024-08-02] MEDS: HEPARIN SODIUM,PORCINE 5,000 UNIT/ML 1 ML VIAL SQ SCH (20:57)
[2024-08-02] MEDS: SENNOSIDES 8.6 MG TAB PO SCH (20:57)
[2024-08-02] MEDS: DAPAGLIFLOZIN PROPANEDIOL 10 MG TABLET PO SCH (20:57)
[2024-08-03 05:46] LABS: Glucose,Whole Blood 215 mg/dL (70-110)
[2024-08-03] MEDS: PANTOPRAZOLE 40 MG TABLET PO SCH (06:18)
[2024-08-03] MEDS: methylPREDNISolone SOD SUCCI 40 MG/ML 1 ML VIAL IV SCH (06:18)
[2024-08-03 07:23] VITALS: BP 124/79; PULSE 88; RESP 16; TEMP 98.3
--- NOTE | 2024-08-03 08:27 | P.PN ---
Subjective Progress Note Date: 08/03/24 Principal diagnosis: Asthma exacerbation. This is a pleasant, morbidly obese 24-year-old male patient with a known history of mild intermittent chronic bronchial asthma, hypertension, hyperlipidemia, seizure disorder anxiety/depression, non-smoker. He presented here to the [facility] just after midnight today with complaints of increasing shortness of breath chest and wheezing. He had been here on the in the emergency department and was tested positive for COVID. He was discharged on steroids without much relief. He has only a rescue inhaler without much relief. Chest x-ray reveals no acute pulmonary process. White count 11.2. Hemoglobin 14.6. Platelets 390. Sodium 133. Potassium 4.6. Bicarb 26. BUN 23. Creatinine 0.7. Glucose 446. AST 106. ALT 99. He is seen today in consultation on the regular medical floor. He is currently sitting up in bed. Awake and alert in no acute distress. Maintaining good O2 saturations in the mid 90s on room air. He is afebrile. Hemodynamically stable. He is still bronchospastic and wheezing. Progress note dated August 03, 2024. 24-year-old male seen yesterday in consultation for asthma exacerbation. Please see the note above. Currently, he is seen today in room 631. He is on room air. Saturations are 95%. He is getting saline at 50 cc an hour. The patient is stable for discharge from the pulmonary standpoint, as his breathing is much improved. Labs today include a glucose of 215. Objective - Vital Signs Vital signs: Vital Signs Temp 98.3 F 08/03/24 07:00 Pulse 88 08/03/24 07:00 Resp 16 08/03/24 07:00 BP 124/79 08/03/24 07:00 Pulse Ox 95 08/03/24 07:00 FiO2 Intake & Output 08/02/24 08/03/24 08/03/24 18:59 06:59 18:59 Intake Total 2360 Output Total 600 Balance 2360 -600 Intake: Oral 2360 Output: Urine 600 Other: # Voids 4 3 # Bowel Movements 0 - Exam No acute distress, oriented 3. Currently on room air. No conversational dyspnea, use of accessory muscles, or audible wheezing. HEENT examination is grossly unremarkable. Mucous membranes are moist. No oral lesions. Neck supple. Full range of motion. No adenopathy thyromegaly or neck vein d istention. Cardiovascular examination reveals regular rhythm rate. S1-S2 normal. No S3 or S4. No discernible murmur noted. Lungs reveal clear breath sounds. Breath sounds are equal bilaterally. No adventitious lung sounds including wheezes rhonchi or crackles. Abdomen soft bowel sounds are heard. No masses or tenderness. Extremities are intact. No cyanosis clubbing or edema. Skin is without rash or lesion. Neurologic examination is brief but nonfocal. - Labs CBC & Chem 7: 08/02/24 01:01 08/02/24 01:01 Labs: Abnormal Lab Results - Last 24 Hours (Table) 08/02/24 08/02/24 08/02/24 Range/Units 01:01 11:58 12:00 POC Glucose (mg/dL) 541 H* 559 H* (70-110) mg/dL Hemoglobin A1c 10.6 H (<=6.0) % 08/02/24 08/02/24 08/02/24 Range/Units 13:13 15:42 17:14 POC Glucose (mg/dL) 524 H* 442 H 389 H (70-110) mg/dL Hemoglobin A1c (<=6.0) % 08/02/24 08/03/24 Range/Units 20:39 05:44 POC Glucose (mg/dL) 382 H 215 H (70-110) mg/dL Hemoglobin A1c (<=6.0) % Assessment and Plan Assessment: Acute exacerbation of mild intermittent chronic bronchial asthma complicated by COVID-19 infection. COVID-19 infection on 07/29/2024. Morbid obesity with a BMI of 48.0 kg/m. Hypertension. Hyperlipidemia. History of seizures. Diabetes mellitus with hyperglycemia. History of anxiety/depression. Plan: Plan dated August 03, 2024. The patient is seen today in room 631. He is on room air. Saturations are 95%. He is feeling well, and would like to be discharged home. He is receiving saline at 50 cc an hour. Labs, x-rays, and medications are reviewed. The patient could be discharged home on a prednisone taper. Follow-up in our office, if the patient wishes. No additional recommendations are made. Prognosis is guarded. The patient should probably be sent home with a maintenance inhaler, such as Breo, Advair, Dulera, Symbicort, etc. Time with Patient: Less than 30
[2024-08-03] MEDS: polyethylene glycoL 3350 17 GM POWD.PACK PO SCH (09:15)
[2024-08-03 09:37] LABS: Basophils # (A) 0.04 X 10*3/uL (0.00-0.10); Basophils % (A) 0.3 %; Eosinophils # (A) 0.15 X 10*3/uL (0.04-0.35); HGB 13.3 g/dL (13.0-17.0); Lymphocytes # (A) 3.73 X 10*3/uL (0.90-5.00); MCH 23.6 pg (27.0-32.0); MCHC 30.9 g/dL (32.0-37.0); MCV 76.4 FL (80.0-97.0); Mean Platelet Volume 10.2 FL (9.5-12.2); Monocytes # (A) 0.98 X 10*3/uL (0.20-1.00); Monocytes % (A) 6.8 %; NRBC Per 100 WBC 0 X 10*3/uL (0.00-0.01); Neutrophils # (A) 9.27 X 10*3/uL (1.80-7.70); Neutrophils % (A) 64.8 %; Platelet Count 448 X 10*3/uL (140-440); RBC 5.63 X 10*6/uL (4.40-5.60); RDW 14.2 % (11.5-14.5); WBC 14.33 X 10*3/uL (4.50-10.00)
[2024-08-03 09:50] LABS: BUN/Creat Ratio 25.25 Ratio (12.00-20.00); Blood Urea Nitrogen 20.2 mg/dL (9.0-27.0); Calcium 9.7 mg/dL (8.7-10.3); Carbon Dioxide 24.3 mmol/L (21.6-31.8); Chloride 113 mmol/L (96-109); Glucose 204 mg/dL (70-110); Potassium 4.2 mmol/L (3.5-5.5); Sodium 153 mmol/L (135-145)
[2024-08-03 11:56] LABS: Glucose,Whole Blood 357 mg/dL (70-110)
--- NOTE | 2024-08-03 13:36 | P.DS ---
Providers Date of admission: 08/02/24 03:33 Expected date of discharge: 08/03/24 Attending physician: Brittany Winston Consults: 08/02/24 03:32 Consult Physician Urgent Consulting Provider: Efren Curtis Reason/Comments: acute asthma exacerbation, covid 19 Do you want consulting provider notified?: Yes Primary care physician: Corry Gaspar Hospital Course: Discharge diagnoses: Acute asthma exacerbation: Mild intermittent chronic bronchial asthma COVID-19 infection 07/29/2024 Failed outpatient treatment Hypertension Hyperlipidemia Diabetes mellitus with hyperglycemia History of seizure History of anxiety/depression Patient treated with breathing treatments/inhalers/bronchodilator protocol, Solu-Medrol during hospitalization Pulmonary evaluated the patient. Continued on steroid taper at discharge Continue albuterol, Symbicort, Spiriva at discharge Outpatient follow-up with pulmonary. Hospital course: 24-year-old male patient with past medical history significant for asthma, hypertension, hyperlipidemia, seizure disorder, anxiety, depression, diabetes mellitus, history of fibroids who presented to ER with a complaint of increasing shortness of breath and wheezing. Patient recently tested positive for COVID on July 29, was discharged on steroids without much relief. Chest x-ray negative for acute process. WBCs 11.2, hemoglobin 14.6, platelet 390. BMP unremarkable. AST elevated 106, ALT 99. Blood sugars elevated more than 500. Patient denied any fever, chills, productive cough, chest pain, palpitation, nausea vomiting diarrhea constipation dysuria urgency frequency weakness or numbness of extremities. Patient was admitted hospital For further evaluation and management of acute asthma exacerbation. Patient was treated with bronchodilator protocol/inhalers and Solu-Medrol. Patient's symptoms gradually improved, patient adolfo on room air. Pulmonary evaluated the patient. Patient continued on albuterol, Symbicort, Spiriva at discharge, continued on steroid taper at discharge. Patient required insulin during hospitalization for hyperglycemia due to Solu-Medrol. Patient home medication resumed at discharge. Please refer to med rec and assessment/plan for further details. Follow-up with PCP in 1 week Follow-up with pulmonary as outpatient. PHYSICAL EXAMINATION: GENERAL: The patient is A&O x3, NAD HEENT: EOMI, Sclerae anicteric, Moist Mucous membranes Neck: Supple, Non tender, No JVD PULMONARY: Equal breath souds B/L, No wheezing, No crackles. CARDIOVASCULAR: S1, S2 present. No murmurs, rubs, or gallops. ABDOMEN: Soft, nontender, nondistended, normoactive bowel sounds. No guarding or rebound tenderness. MUSCULOSKELETAL: No edema, No cyanosis. No clubbing. Normal ROM. Intact peripheral pulses. NEUROLOGICAL: CN 2-12 grossly intact. No FND SKIN: No rashes. Dictation was produced using [employer] dictation software. please excuse any grammatical, word or spelling errors. Patient Condition at Discharge: Fair Plan - Discharge Summary Discharge Rx Participant: No New Discharge Prescriptions: New Tiotropium 18 Mcg/Puff [Spiriva] 1 puff INHALATION DAILY #30 each predniSONE 10 mg PO DAILY #27 tab Continue Sertraline [Zoloft] 200 mg PO DAILY Montelukast [Singulair] 10 mg PO HS Loratadine [Claritin] 10 mg PO DAILY Albuterol Inhaler [Ventolin Hfa Inhaler] 2 puff INHALATION RT-QID PRN PRN Reason: Shortness Of Breath Rosuvastatin [Crestor] 5 mg PO HS Empagliflozin [Jardiance] 25 mg PO HS lisinopriL [Zestril] 5 mg PO DAILY Omeprazole [PriLOSEC] 20 mg PO DAILY ARIPiprazole [Abilify] 15 mg PO DAILY Budesonide/Formoterol Fumarate [Symbicort 160-4.5 Mcg Inhaler] 2 puff INHALATION RT-BID Lacosamide 150 mg PO HS Discontinued predniSONE [Deltasone] 60 mg PO DAILY 5 Days #15 tab Discharge Medication List Loratadine [Claritin] 10 mg PO DAILY 12/09/18 [History] Montelukast [Singulair] 10 mg PO HS 12/09/18 [History] Sertraline [Zoloft] 200 mg PO DAILY 12/09/18 [History] Albuterol Inhaler [Ventolin Hfa Inhaler] 2 puff INHALATION RT-QID PRN 03/09/19 [History] Omeprazole [PriLOSEC] 20 mg PO DAILY 09/26/22 [History] Rosuvastatin [Crestor] 5 mg PO HS 09/26/22 [History] lisinopriL [Zestril] 5 mg PO DAILY 09/26/22 [History] ARIPiprazole [Abilify] 15 mg PO DAILY 08/02/24 [History] Budesonide/Formoterol Fumarate [Symbicort 160-4.5 Mcg Inhaler] 2 puff INHALATION RT-BID 08/02/24 [History] Empagliflozin [Jardiance] 25 mg PO HS 08/02/24 [History] Lacosamide 150 mg PO HS 08/02/24 [History] Tiotropium 18 Mcg/Puff [Spiriva] 1 puff INHALATION DAILY #30 each 08/03/24 [Rx] predniSONE 10 mg PO DAILY #27 tab 08/03/24 [Rx] Follow up Appointment(s)/Referral(s): Efren Curtis DO [Doctor of Osteopathic Medicine] - 1 Week Corry Gaspar MD [Primary Care Provider] - 1-2 days Discharge Disposition: HOME SELF-CARE
== END 2024-08-03 15:15 | disposition home or self-care (01) ==
LOC: EC 00:09 → 6NMEDSUR 03:33
PROVIDERS: ADMIT Hospitalist; ATTEND Hospitalist
DX: J45.21 Mild intermittent asthma with (acute) exacerbation (principal); U07.1 COVID-19; E11.65 Type 2 diabetes mellitus with hyperglycemia; I10 Essential (primary) hypertension; E78.5 Hyperlipidemia, unspecified; G40.909 Epilepsy, unspecified, not intractable, without status epilepticus; E66.01 Morbid (severe) obesity due to excess calories; Z68.42 Body mass index [BMI] 45.0-49.9, adult; R74.01 Elevation of levels of liver transaminase levels; F32.A Depression, unspecified; F41.9 Anxiety disorder, unspecified; Z79.899 Other long term (current) drug therapy; Z79.84 Long term (current) use of oral hypoglycemic drugs; Z79.51 Long term (current) use of inhaled steroids; Z79.52 Long term (current) use of systemic steroids; Z91.040 Latex allergy status; Z91.048 Other nonmedicinal substance allergy status
CPT/HCPCS: 96376; 96361 ×3; 96372 ×2; 96374; 99285; 36415; 94640 ×4; 93005; 80053; 80048; 85025 ×2; 83036; 71046; G0378 ×2; J1644 ×2; J2919 ×2